=== PATIENT | female | born 1950 | race Caucasian/White ===

== ENCOUNTER 2020-02-24 12:33 | Inpatient (IN) | payer MEDICARE, BC, SELFPAY ==
[2020-02-24] VITALS (41 sets, daily range): BP systolic 93–127; BP diastolic 41–62; PULSE 99–112; RESP 13–27; TEMP 38; O2SAT 86–96; BMI 24.7
--- NOTE | 2020-02-24 13:34 | W.ED.GENADLT ---
HPI - General Adult General: Chief complaint: General Medical Stated complaint: Generalized illness/poss aspiration Time Seen by Provider: 02/24/20 12:58 History of Present Illness: HPI narrative: 69-year-old female presents with nausea and vomiting woke up at around 1 AM this morning the complaint of reflux she is concerned that she aspirated she evidently has had aspiration pneumonia related to this in the past. She had a low-grade fever at home and chills. She denies any hematemesis or coffee-ground emesis no hematochezia she denies chest pain she has been somewhat shortness of breath short of breath has a moderate cough which is nonproductive. She denies any UTI symptoms she does have chronic diarrhea lately related to Crohn's. She denies any chest pain. Onset (ago): hour(s) (12) Radiation: non-radiation Severity: moderate Relieving factors: rest and other (Oxygen) Exacerbating factors: movement Associated symptoms: Reports cough, decreased appetite, dyspnea, fevers/chills, malaise, nausea and short of breath; Deny chest pain, confusion, diaphoresis, headache(s), rash, palpitations, seizures, syncope, vomiting, weakness or other Treatments prior to arrival: none Review of Systems Const: Reports: malaise; Denies: diaphoresis ENMT: Denies: throat pain, ear pain, nasal discharge or nasal congestion Card: Denies: chest pain, palpitations or syncope Resp: Reports: shortness of breath GI: Reports: nausea; Denies: vomiting : Denies: flank pain, difficulty urinating, painful urination, urinary frequency or urinary urgency Skin/Breast: Denies: rash Neuro: Denies: headache or confusion PFS ED PFSH: Medical History (Updated 02/25/20 @ 13:30 by Dheeraj Thacker DO) Crohn disease On azathioprine GERD (gastroesophageal reflux disease) HTN (hypertension) Syncope Has been a recurrent problem, though now associated with dizziness but no further actual loss of consciousness, follows with Dr. Manning. Etiology not clear. Surgical History History of appendectomy History of bowel resection large and small bowel, 6 different ORs, no colostomy, some dumping syndrome History of cholecystectomy History of hysterectomy Family History Other Atrial fibrillation Stroke Social History (Updated 02/24/20 @ 19:46 by Dianne Houser MD) Smoking and tobacco status: current every day smoker e-cigarettes E-Cigarette Details: vaporizer device E-cig/vape details: no nicotine currently Quit status (tobacco): has quit using tobacco Year quit tobacco: 2014 Previous occupational history: Retired nurse Physical Exam Const: COMMON NORMALS: no apparent distress GENERAL APPEARANCE: cooperative and comfortable ORIENTATION/CONSCIOUSNESS: Yes awake, Yes oriented to person, Yes oriented to place and Yes oriented to time HENMT: COMMON NORMALS: normocephalic, head/scalp atraumatic, hearing grossly normal bilaterally, external ears normal, EAC's normal, TM's normal bilaterally, nasal mucous membranes and turbinates normal, moist oral mucous membranes and oropharynx normal HEAD & SCALP: normocephalic and atraumatic NOSE: nasal mucous membranes and turbinates normal EXTERNAL EAR: Yes external ears normal EXTERNAL AUDITORY CANAL: EAC's normal TYMPANIC MEMBRANE: TM's normal bilaterally Eye: COMMON NORMALS: PERRL, EOMs intact bilaterally, conjunctivae normal and no scleral icterus CONJUNCTIVA: Yes conjunctivae normal PUPIL: Yes PERRL Neck/C-Spine: COMMON NORMALS: no JVD Resp: COMMON NORMALS: normal respiratory effort AUSCULTATION: rhonchi and wheezes Cardio: COMMON NORMALS: no JVD, regular rate, regular rhythm and no murmurs RATE: regular rate RHYTHM: regular rhythm GI: COMMON NORMALS: soft to palpation and no hepatosplenomegaly AUSCULTATION: Yes normoactive bowel sounds PALPATION: Yes soft, No tender, No guarding and Yes no hepatosplenomegaly Extremity: COMMON NORMALS: normal to inspection, normal capillary refill, no clubbing, cyanosis or edema, no calf tenderness and no pedal edema Neuro: SENSORIUM/ORIENTATION: Yes oriented to person, Yes oriented to place and Yes oriented to time Skin: COMMON NORMALS: no rashes or lesions noted GENERAL SKIN EXAM: no rashes or lesions noted Course Vital Signs: Vital signs: Vital Signs Temperature 99.1 F 02/25/20 04:00 Pulse Rate 87 02/25/20 12:00 Respiratory Rate 16 02/25/20 10:00 Blood Pressure 100/56 02/25/20 12:00 Pulse Oximetry 93 02/25/20 12:00 [facility] - General Adult Lab Data: Labs: Lab Results 02/24/20 02/24/20 02/24/20 Range/Units 13:47 13:47 13:47 WBC 15.1 H (4.0-10.0) 10^3/ uL RBC 3.84 L (4.1-5.3) 10^6/u L Hgb 12.4 (11.5-15.3) g/dL Hct 38.1 (37.0-47.0) % MCV 99.2 H (81-99) fL MCH 32.3 (28.0-34.0) pg MCHC 32.5 (30.0-36.0) g/dL RDW 14.5 (12.1-15.1) % Plt Count 227 (130-400) 10^3/c mm MPV 10.6 H (7.4-10.4) fL Neut % (Auto) 85.3 % Lymph % (Auto) 6.4 % [place] % (Auto) 7.8 % Eos % (Auto) 0.0 % Baso % (Auto) 0.2 % Neut # (Auto) 12.8 H (1.8-7.7) 10^3/u L Lymph # (Auto) 1.0 (0.8-4.8) 10^3/u L [place] # (Auto) 1.2 H (0.2-0.9) 10^3/u L Eos # (Auto) 0.0 (0.0-0.8) 10^3/u L Baso # (Auto) 0.0 (0.0-0.1) 10^3/u L Nucleated RBC % (a uto) 0 % Nucleated RBCs # 0.0 /100WBC Sodium 138 (136-145) mmol/L Potassium 3.7 (3.5-5.1) mmol/L Chloride 102 (98-107) mmol/L Carbon Dioxide 24 (22-29) mmol/L Anion Gap 15.7 (5-19) BUN 18 (8-23) mg/dL Creatinine 1.3 H (0.5-0.9) mg/dL GFR Calculation 40.7 L (90-130) mL/min Glucose 105 (65-115) mg/dL Calculated Osmolal ity 283 L (285-295) mOsm/k g Lactate 1.9 (0.5-2.2) mmol/L Calcium 9.5 (8.5-10.5) mg/dL Total Bilirubin 0.8 (0.15-1.2) mg/dL AST 29 (0-32) U/L ALT 21 (0-33) U/L Alkaline Phosphata se 93 (35-105) IU/L Total Protein 6.3 L (6.6-8.7) g/dL Albumin 3.6 (3.5-5.2) g/dL Globulin 2.7 (1.3-4.6) g/dL Lipase 30 (13-60) U/L Urine Color (Yellow) Urine Appearance (CLEAR) Urine pH (5-7) Ur Specific Gravit y (1.005-1.030) Urine Protein (Negative) Urine Glucose (UA) (Normal) Urine Ketones (Negative) Urine Blood (Negative) Urine Nitrate (Negative) Urine Bilirubin (NEGATIVE) Urine Urobilinogen (Negative) mg/dL Ur Leukocyte [place] (Negative) 02/24/20 Range/Units 14:21 WBC (4.0-10.0) 10^3/ uL RBC (4.1-5.3) 10^6/u L Hgb (11.5-15.3) g/dL Hct (37.0-47.0) % MCV (81-99) fL MCH (28.0-34.0) pg MCHC (30.0-36.0) g/dL RDW (12.1-15.1) % Plt Count (130-400) 10^3/c mm MPV (7.4-10.4) fL Neut % (Auto) % Lymph % (Auto) % [place] % (Auto) % Eos % (Auto) % Baso % (Auto) % Neut # (Auto) (1.8-7.7) 10^3/u L Lymph # (Auto) (0.8-4.8) 10^3/u L [place] # (Auto) (0.2-0.9) 10^3/u L Eos # (Auto) (0.0-0.8) 10^3/u L Baso # (Auto) (0.0-0.1) 10^3/u L Nucleated RBC % (a uto) % Nucleated RBCs # /100WBC Sodium (136-145) mmol/L Potassium (3.5-5.1) mmol/L Chloride (98-107) mmol/L Carbon Dioxide (22-29) mmol/L Anion Gap (5-19) BUN (8-23) mg/dL Creatinine (0.5-0.9) mg/dL GFR Calculation (90-130) mL/min Glucose (65-115) mg/dL Calculated Osmolal ity (285-295) mOsm/k g Lactate (0.5-2.2) mmol/L Calcium (8.5-10.5) mg/dL Total Bilirubin (0.15-1.2) mg/dL AST (0-32) U/L ALT (0-33) U/L Alkaline Phosphata se (35-105) IU/L Total Protein (6.6-8.7) g/dL Albumin (3.5-5.2) g/dL Globulin (1.3-4.6) g/dL Lipase (13-60) U/L Urine Color Yellow (Yellow) Urine Appearance Clear (CLEAR) Urine pH 5 (5-7) Ur Specific Gravit y 1.010 (1.005-1.030) Urine Protein Neg (Negative) Urine Glucose (UA) Norm (Normal) Urine Ketones Negative (Negative) Urine Blood Neg (Negative) Urine Nitrate Negative (Negative) Urine Bilirubin Neg (NEGATIVE) Urine Urobilinogen Norm (Negative) mg/dL Ur Leukocyte [place] Negative (Negative) Discharge Plan Discharge Patient Disposition: Admitted As Inpatient Admit Provider: Dianne Houser Clinical Impression: Pneumonia, HTN (hypertension), GERD (gastroesophageal reflux disease) Condition: Stable Interventions: ED Discharge Assessment Last Done: 02/24/20 20:50 ED Charges Last Done: 02/24/20 20:50 Discharge Date/Time: 02/24/20 20:53 Coding Level 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
--- NOTE | 2020-02-24 13:37 | XR_ITS ---
WS: [id number] PORTABLE CHEST HISTORY: dyspnea/cough COMPARISON: 04/27/2019 Hyperinflated lungs. Development of pneumonia in the mid to lower RIGHT lung since the prior study. I nterstitial thickening and mild haziness is evident. LEFT lung is clear. No pleural effusion or pneum othorax. Cardiac size: Mildly enlarged cardiac silhouette. Mediastinum/Aorta: Mild atherosclerosis aorta. No osseous abnormality seen. XR/XR chest 1V portable [id number] IMPRESSION: 1. New interstitial pneumonia/pneumonitis mid and lower RIGHT lung. 2. Chronic emphysema and atherosclerosis aorta.
--- NOTE | 2020-02-24 13:37 | CT_ITS ---
WS: [id number] CT ABDOMEN AND PELVIS WITH CONTRAST HISTORY: Abdominal pain with history of Crohn's disease. Prior hysterectomy, cholecystectomy, appende ctomy and small bowel/colon surgery. TECHNIQUE: Imaging performed of the abdomen and pelvis with IV contrast. Single phase imaging of the abdomen. Coronal and sagittal reformats are submitted. All CT scans at [facility] use at least one of these dose optimization techniques: automated exposure control; mA and/or kV adjustment per patient size (includes targeted exams where dose is matched to clinical indication); or iterativ e reconstruction. IV CONTRAST: Visipaque 320; 95 mL IV. Oral contrast: No DLP: 927.2 mGy.cm COMPARISON: None available. Lower thorax: Hazy opacifications and tree-in-bud airspace disease in the RIGHT middle and RIGHT lowe r lobes consistent with pneumonia. There are groundglass areas of attenuation and more consolidated a reas. Heart is normal size. No hiatal hernia. Liver/biliary system: Normal size liver. No mass. There is mild biliary dilatation probably on the ba sis of a prior cholecystectomy. Gallbladder: Prior cholecystectomy. Pancreas: Normal. Spleen: Normal size spleen with granulomata. Adrenal glands: Normal. Right kidney: No obstruction. Normal enhancement. Exophytic cyst from the lower pole measures 8 mm. Left kidney: Normal kidney. Exophytic too small to characterize cystic mass from the upper pole. Aorta: Extensive atherosclerosis aorta with no aneurysm. Lymphadenopathy: None. Free fluid: None. GI tract: Surgical sutures are noted within the RIGHT colon. The appendix is been removed. There is i ncrease fluid throughout the colon and also portions of the small bowel. No Abdominal wall: Unremarkable abdominal wall. No hernia. Pelvis: Prior hysterectomy. Urinary bladder is not distended. Bones: LEFT convex curvature lumbar spine. CT/CT abdomen pelvis w con* [id number] IMPRESSION: 1. Increased amount of fluid within the mid to distal small bowel and colon. N o transition point or site of obstruction is apparent. Postsurgical changes in the cecum, transverse colon. Prior cholecystectomy, appendectomy and hysterecto my. 2. RIGHT middle and RIGHT lower lobe pneumonia. 3. Extensive atherosclerosis aorta.
[2020-02-24 13:57] LABS: Basophils % 0.2 %; Hematocrit 38.1 % (37.0-47.0); Hemoglobin 12.4 g/dL (11.5-15.3); Lymphocytes % 6.4 %; Mean Corpuscular HGB Conc 32.5 g/dL (30.0-36.0); Mean Corpuscular Hemoglobin 32.3 pg (28.0-34.0); Mean Corpuscular Volume 99.2 fL (81-99); Mean Platelet Volume 10.6 fL (7.4-10.4); Monocytes # 1.2 10^3/uL (0.2-0.9); Monocytes % 7.8 %; Neutrophils # 12.8 10^3/uL (1.8-7.7); Neutrophils % 85.3 %; Nucleated Red Blood Cells % 0 %; Platelet Count 227 10^3/cmm (130-400); Red Blood Count 3.84 10^6/uL (4.1-5.3); Red Cell Distribution Width 14.5 % (12.1-15.1); White Blood Count 15.1 10^3/uL (4.0-10.0)
[2020-02-24 14:10] LABS: Lactate (Lactic Acid level) 1.9 mmol/L (0.5-2.2)
[2020-02-24 14:11] LABS: Alanine Aminotransferase 21 U/L (0-33); Albumin Level 3.6 g/dL (3.5-5.2); Alkaline Phosphatase 93 IU/L (35-105); Anion Gap 15.7 (5-19); Aspartate Amino Transferase 29 U/L (0-32); Blood Urea Nitrogen 18 mg/dL (8-23); Calcium 9.5 mg/dL (8.5-10.5); Carbon Dioxide 24 mmol/L (22-29); Chloride 102 mmol/L (98-107); Globulin 2.7 g/dL (1.3-4.6); Glomerular Filtration Rate 40.7 mL/min (90-130); Glucose 105 mg/dL (65-115); Lipase 30 U/L (13-60); Osmolality Calculated 283 mOsm/kg (285-295); Potassium 3.7 mmol/L (3.5-5.1); Sodium 138 mmol/L (136-145); Total Bilirubin 0.8 mg/dL (0.15-1.2); Total Protein 6.3 g/dL (6.6-8.7)
[2020-02-24 14:31] LABS: Add Urine Microscopic? NO
[2020-02-24] MEDS: iodixanol 320 mg/mL 100mL Btl IV (14:31)
[2020-02-24] MEDS: ondansetron 2 mg/ML SDV 2 mL 4 MG IVP ×2 (14:40→17:30)
[2020-02-24] MEDS: sodium chloride 0.9% 1,000 ML 999 ML IV (14:40)
[2020-02-24 14:41] LABS: Bilirubin Urine Neg (NEGATIVE); Blood Urine Neg (Negative); Glucose Urine UA Norm (Normal); Ketones Urine Negative (Negative); Leukocyte Esterase Urine Negative (Negative); Nitrate Urine Negative (Negative); Protein Urine Neg (Negative); Urine Appearance Clear (CLEAR); Urine Color Yellow (Yellow); Urobilinogen Urine Norm (Negative); pH Urine 5 (5-7)
[2020-02-24] MEDS: clindamycin 150 mg/mL SDV 6 mL 600 MG IV (17:00)
[2020-02-24] MEDS: doxycycline 100 MG in sodium chloride 0.9% (plus) 100 ML IV (18:00)
--- NOTE | 2020-02-24 18:14 | PM.HP ---
Providers/Chief Complaint Admitting Physician: Dianne Houser Primary Care Provider: Israel Garcia APN Chief Complaint: Generalized illness/poss aspiration History of Present Illness Milagros Champagne is a 69 year old female who presented to the emergency room with shortness of breath and not feeling well. Symptoms began around 1 AM this morning. She had some significant reflux which is a chronic problem for her and this was followed by several episodes of vomiting. A short time later she began to feel short of breath. It has progressively worsened since then. She reports a fever up to 101 at home. EMS reported oxygen saturations in the mid 80s. She is not normally on oxygen. She says she was fine yesterday, went to [facility] and was doing okay. No known sick contacts. Resides in [facility] in [facility]. She did have influenza and pneumonia in August of last year but has done okay since then. Continues to have intermittent episodes of dizziness. In the emergency room today she was found to have right middle lobe and right lower lobe pneumonia. She continued to be febrile. Lactic acid was normal but white count was 15. She received some clindamycin. She is being admitted for further care. Review of Systems Const: Reports: fever and chills; Denies: change in weight Eyes: Denies: change in vision ENMT: Reports: dry mouth and other; Denies: throat pain or nasal congestion Card: Denies: chest pain, palpitations or edema Resp: Reports: shortness of breath, productive cough, non-productive cough, wheezing and chest congestion; Denies: coughing up blood GI: Reports: nausea, vomiting, heartburn/indigestion, diarrhea (Chronic, not recently changed) and other (Frequent reflux); Denies: abdominal pain, vomiting blood, difficulty swallowing, constipation or blood in stool : Denies: difficulty urinating or urinary frequency Musc: Denies: joint pain or joint swelling Skin/Breast: Denies: rash or sores Neuro: Denies: headache or weakness in extremities Psych: Denies: anxiety or depression Jet/Lymph: Denies: easy bruising or easy bleeding Medications/Allergies Home Medications Medication Instructions Recorded Confirmed Last Taken Type atenolol 50 mg tablet 50 mg PO BID 12/27/19 02/24/20 02/23/20 History azathioprine 50 mg tablet 50 mg PO DAILY 12/27/19 02/24/20 02/23/20 History lisinopril 20 mg tablet 20 mg PO DAILY 12/27/19 02/24/20 02/23/20 History pantoprazole 40 mg tablet,delayed 40 mg PO DAILY 12/27/19 02/24/20 02/23/20 History release promethazine 25 mg tablet 25 mg PO Q6H PRN 12/27/19 02/24/20 Unknown History cyanocobalamin (vitamin B-12) 1,000 mcg PO DAILY 02/24/20 02/24/20 02/23/20 History [Vitamin B-12] meclizine 25 mg PO TID PRN 02/24/20 02/24/20 Unknown History Allergies Allergy/AdvReac Type Severity Reaction Status Date / Time codeine Allergy Unknown Verified 12/27/19 09:04 erythromycin base Allergy Unknown Verified 12/27/19 09:04 Penicillins Allergy Unknown Verified 12/27/19 09:04 PFSH Acute PFSH: Medical History (Updated 02/24/20 @ 19:53 by Dianne Houser MD) Crohn disease On azathioprine GERD (gastroesophageal reflux disease) HTN (hypertension) Syncope Has been a recurrent problem, though now associated with dizziness but no further actual loss of consciousness, follows with Dr. Manning. Etiology not clear. Surgical History History of appendectomy History of bowel resection large and small bowel, 6 different ORs, no colostomy, some dumping syndrome History of cholecystectomy History of hysterectomy Family History Other Atrial fibrillation Stroke Social History (Updated 02/24/20 @ 19:46 by Dianne Houser MD) Smoking and tobacco status: current every day smoker e-cigarettes E-Cigarette Details: vaporizer device E-cig/vape details: no nicotine currently Quit status (tobacco): has quit using tobacco Year quit tobacco: 2014 Previous occupational history: Retired nurse Vitals/I&O/Wt Last Vital Signs Temp 100.4 F H 02/24/20 12:34 Pulse 108 H 02/24/20 12:43 Resp 18 02/24/20 12:43 BP 105/57 02/24/20 12:43 Pulse Ox 92 02/24/20 12:43 Weight last 48 hrs Weight 71.668 kg Physical Exam Const: OTHER: Alert, oriented x3, cooperative, mildly ill-appearing HENMT: OTHER: Normocephalic atraumatic. Oropharynx dry, edentulous uppers Eye: OTHER: Pupils equally round and reactive to light Neck/C-Spine: COMMON NORMALS: supple Resp: OTHER: Patient with some wheezing and rhonchi noted to the right, wheezing to the left, no accessory muscle use but has to pause when talking every now and then Cardio: OTHER: Tachycardic, regular rhythm, 1+ pulses GI: OTHER: Abdomen soft, nontender, positive bowel sounds Extremity: NARRATIVE EXTREMITY EXAM: No pitting edema or acute synovitis Neuro: OTHER: Speech clear, moves all extremities, face symmetric Skin: NARRATIVE SKIN EXAM: Dry skin, no acute rashes noted, chronic sun exposure changes Data : 02/24/20 13:47 02/24/20 13:47 Other Labs: Short CBC 02/24/20 Range/Units 13:47 WBC 15.1 H (4.0-10.0) 10^3/uL Hgb 12.4 (11.5-15.3) g/dL Hct 38.1 (37.0-47.0) % Plt Count 227 (130-400) 10^3/cmm BMP 02/24/20 13:47 Sodium 138 Potassium 3.7 Chloride 102 Carbon Dioxide 24 BUN 18 Creatinine 1.3 H Glucose 105 Calcium 9.5 Liver Function 02/24/20 Range/Units 13:47 Total Bilirubin 0.8 (0.15-1.2) mg/dL AST 29 (0-32) U/L ALT 21 (0-33) U/L Alkaline Phosphatase 93 (35-105) IU/L Albumin 3.6 (3.5-5.2) g/dL Urine 02/24/20 Range/Units 14:21 Urine Color Yellow (Yellow) Urine Appearance Clear (CLEAR) Urine pH 5 (5-7) Ur Specific [place] 1.010 (1.005-1.030) Urine Protein Neg (Negative) Urine Glucose (UA) Norm (Normal) Laboratory Tests 02/24/20 02/24/20 02/24/20 13:47 13:47 13:47 Neut % (Auto) 85.3 Lymph % (Auto) 6.4 Lactate 1.9 Lipase 30 Influenza Type A Ag Influenza Type B Ag 02/24/20 17:20 Neut % (Auto) Lymph % (Auto) Lactate Lipase Influenza Type A Ag Negative Influenza Type B Ag Negative Micro: Microbiology 02/24/20 15:54 Blood Culture - Preliminary Blood SPECIMEN COLLECTED 02/24/20 13:47 Blood Culture - Preliminary Blood SPECIMEN COLLECTED A&P Assessment and plan (1) Pneumonia: Status: Acute Qualifiers: Pneumonia type: aspiration pneumonia Laterality: right Lung location: lower lobe of lung Aspiration pneumonia type: due to gastric secretions Qualified Code(s): J69.0 - Pneumonitis due to inhalation of food and vomit (2) GERD (gastroesophageal reflux disease): Status: Acute Qualifiers: Esophagitis presence: esophagitis presence not specified Qualified Code(s): K21.9 - Gastro-esophageal reflux disease without esophagitis (3) Crohn disease: Status: Acute Qualifiers: Gastrointestinal tract location: small and large intestine Digestive disease complication type: without complication Qualified Code(s): K50.80 - Crohn's disease of both small and large intestine without complications (4) HTN (hypertension): Status: Acute Qualifiers: Hypertension type: essential hypertension Qualified Code(s): I10 - Essential (primary) hypertension Additional A&P Information Inpatient admission COVID-19 testing Broad coverage with Levaquin and Clinda Albuterol inhaler Oxygen therapy as needed, will need to continue to monitor Continue PPI Add lactobacillus Will continue atenolol at half dose but otherwise hold most of the remainder of patient's medications Lovenox for DVT prophylaxis Supportive care otherwise Full code Anticipate disposition back home with the question being whether or not she will need to continue on oxygen therapy Further plans depending on initial testing and response to Attestations Medical Necessity Statement*: Currently anticipated stay greater than 2 midnights in a patient requiring oxygen therapy for pneumonia Coding Level of Care Code Acute Director Of Education for [facility] Fwd Diagnoses Pneumonia J69.0 Pneumonia type: aspiration pneumonia Laterality: right Lung location: lower lobe of lung Aspiration pneumonia type: due to gastric secretions GERD (gastroesophageal reflux disease) K21.9 Esophagitis presence: esophagitis presence not specified Crohn disease K50.80 Gastrointestinal tract location: small and large intestine Digestive disease complication type: without complication HTN (hypertension) I10 Hypertension type: essential hypertension
[2020-02-24] MEDS: morphine 4 mg/mL SDV 1 mL 2 MG IVP (18:35)
[2020-02-24 19:09] LABS: Influenza A by IFA Negative (Negative)
[2020-02-24 19:10] LABS: Influenza B by IFA Negative (Negative)
--- NOTE | 2020-02-24 20:03 | PC.NURSE ---
REPORT RECEIVED FROM FELECIA, HOPPER ATTENDANT, AND CARE TRANSFERRED TO GABRIELE MARTINEZ
[2020-02-24] MEDS: enoxaparin 40 mg/0.4 mL Syringe SUBCUT (22:19)
[2020-02-24] MEDS: sodium chlor 0.45% +KCl 20 mEq 20 MEQ/1,000 ML BAG 100 MEQ IV (22:20)
[2020-02-24] MEDS: levofloxacin-dextrose 5 % 750 MG/150 ML PREMIX 100 MG IV (22:20)
[2020-02-25] VITALS (22 sets, daily range): BP systolic 91–154; BP diastolic 42–113; PULSE 82–114; RESP 14–29; TEMP 37.2–37.3; O2SAT 92–99
[2020-02-25] MEDS: clindamycin 600 MG/50 ML PREMIX 100 MG IV ×3 (01:30→19:20)
[2020-02-25] MEDS: acetaminophen 325 mg Tablet 650 MG PO ×2 (01:37→17:08)
[2020-02-25 06:25] LABS: Magnesium 1.5 mg/dL (1.7-2.3); Phosphorus 3.5 mg/dL (2.5-4.5)
[2020-02-25 06:55] LABS: Anion Gap 16.7 (5-19); Blood Urea Nitrogen 20 mg/dL (8-23); Calcium 8.1 mg/dL (8.5-10.5); Carbon Dioxide 22 mmol/L (22-29); Chloride 102 mmol/L (98-107); Glomerular Filtration Rate 44.7 mL/min (90-130); Glucose 93 mg/dL (65-115); Osmolality Calculated 280 mOsm/kg (285-295); Potassium 3.7 mmol/L (3.5-5.1); Sodium 137 mmol/L (136-145)
[2020-02-25 06:58] LABS: Basophils % 0.3 %; Eosinophils % 0.1 %; Hematocrit 34.9 % (37.0-47.0); Lymphocytes # 1.2 10^3/uL (0.8-4.8); Lymphocytes % 8.4 %; Mean Corpuscular HGB Conc 31.5 g/dL (30.0-36.0); Mean Corpuscular Hemoglobin 32.5 pg (28.0-34.0); Mean Corpuscular Volume 103.3 fL (81-99); Mean Platelet Volume 10.7 fL (7.4-10.4); Monocytes # 0.9 10^3/uL (0.2-0.9); Monocytes % 6.6 %; Neutrophils # 11.9 10^3/uL (1.8-7.7); Neutrophils % 83.9 %; Nucleated Red Blood Cells % 0 %; Platelet Count 177 10^3/cmm (130-400); Red Blood Count 3.38 10^6/uL (4.1-5.3); Red Cell Distribution Width 14.7 % (12.1-15.1); White Blood Count 14.2 10^3/uL (4.0-10.0)
[2020-02-25] MEDS: lactobacillus 1 Tablet 1 TAB PO ×2 (08:54→19:19)
[2020-02-25] MEDS: pantoprazole DR 40 mg Tablet PO (08:54)
[2020-02-25] MEDS: atenolol 50 mg Tablet 25 MG PO ×2 (08:54→19:20)
--- NOTE | 2020-02-25 08:55 | P.PN_ITS ---
Subjective Medications: Reviewed: Yes Vitals/I&O/Wt Last Vital Signs Temp 99.1 F 02/25/20 04:00 Pulse 97 02/25/20 04:00 Resp 18 02/25/20 04:00 BP 91/42 02/25/20 04:00 Pulse Ox 93 02/25/20 03:00 02/24/20 02/25/20 02/25/20 22:59 06:59 14:59 Intake Total 100 / 100 50 / 150 Balance 100 / 100 50 / 150 Weight last 48 hrs Weight 71.668 kg Physical Exam Const: OTHER: Alert, oriented x3, cooperative, mildly ill-appearing HENMT: OTHER: Normocephalic atraumatic. Oropharynx dry, edentulous uppers Eye: OTHER: Pupils equally round and reactive to light Neck/C-Spine: COMMON NORMALS: supple Resp: OTHER: Patient with some wheezing and rhonchi noted to the right, wheezing to the left, no accessory muscle use but has to pause when talking debbie ry now and then Cardio: OTHER: Tachycardic, regular rhythm, 1+ pulses GI: OTHER: Abdomen soft, nontender, positive bowel sounds Extremity: NARRATIVE EXTREMITY EXAM: No pitting edema or acute synovitis Neuro: OTHER: Speech clear, moves all extremities, face symmetric Skin: NARRATIVE SKIN EXAM: Dry skin, no acute rashes noted, chronic sun exposure changes Data : 02/25/20 06:50 02/25/20 05:29 Micro: Microbiology 02/24/20 15:54 Blood Culture - Preliminary Blood SPECIMEN COLLECTED 02/24/20 13:47 Blood Culture - Preliminary Blood SPECIMEN COLLECTED A&P Assessment and plan (1) Pneumonia: Status: Acute Qualifiers: Pneumonia type: aspiration pneumonia Aspiration pneumonia type: due to gastric secretions Laterality: right Lung location: lower lobe of lung Qualified Code(s): J69.0 - Pneumonitis due to inhalation of food and vomit (2) GERD (gastroesophageal reflux disease): Status: Acute Qualifiers: Esophagitis presence: esophagitis presence not specified Qualified Code(s): K21.9 - Gastro-esophageal reflux disease without esophagitis (3) Crohn disease: Status: Acute Qualifiers: Gastrointestinal tract location: small and large intestine Digestive disease complication type: without complication Qualified Code(s): K50.80 - Crohn's disease of both small and large intestine without complications (4) HTN (hypertension): Status: Acute Qualifiers: Hypertension type: essential hypertension Qualified Code(s): I10 - Essential (primary) hypertension Additional A&P Information COVID-19 testing still pending Continue broad antibiotics Albuterol inhaler On oxygen Replace magnesium Continue PPI On lactobacillus Keep atenolol at half dose for now Remains off of lisinopril Azathioprine currently held Lovenox for DVT prophylaxis Supportive care otherwise Full code Anticipate disposition back home with the question being whether or not she will need to continue on oxygen therapy Further plans depending on initial testing and response to Coding 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
--- NOTE | 2020-02-25 14:53 | PM.PN ---
Subjective Subjective: Interval history: Patient is feeling much better. She was able to come off of oxygen last evening. She is not been up walking around much because she has been in isolation. COVID testing has come back negative. Yesterday her oxygen saturations were in the mid 80s at her initial presentation. Official chest x-ray interpretation does not show evidence of pneumonia. White count is trending down. Vitals/I&O/Wt Last Vital Signs Temp 99.1 F 02/25/20 04:00 Pulse 87 02/25/20 12:00 Resp 16 02/25/20 10:00 BP 100/56 02/25/20 12:00 Pulse Ox 93 02/25/20 12:00 02/24/20 02/25/20 02/25/20 22:59 06:59 14:59 Intake Total 100 / 100 50 / 150 Balance 100 / 100 50 / 150 Weight last 48 hrs Weight 71.668 kg Physical Exam Const: OTHER: Alert, oriented x3, cooperative, not as ill-appearing today HENMT: OTHER: Normocephalic atraumatic, moist mucus membranes Eye: OTHER: Pupils equally round and reactive to light Neck/C-Spine: OTHER: Supple Resp: OTHER: Patient is actually clear today. No wheezes noted. No retractions Cardio: OTHER: Regular rate and rhythm, no murmurs gallops or rubs. Pulses euqal throughout GI: OTHER: Abdomen soft, nontender, nondistended with positive bowel sounds Extremity: NARRATIVE EXTREMITY EXAM: No cyanosis, clubbing or edema Neuro: OTHER: Face symmetric, speech clear, moves all extremities Psych: OTHER: Normal affect Skin: OTHER: Skin without any lesions or rashes noted Data : 02/25/20 06:50 02/25/20 05:29 Micro: Microbiology 02/24/20 15:54 Blood Culture - Preliminary Blood SPECIMEN COLLECTED 02/24/20 13:47 Blood Culture - Preliminary Blood SPECIMEN COLLECTED A&P Assessment and plan (1) Hypoxemia: Noted at presentation into the mid 80s. Not chronically on oxygen. Looks to have improved and is no longer on oxygen at rest. Was felt to be related to pneumonia although official chest x-ray interpretation just shows emphysematous changes. May be more of a new finding of COPD situation with some bronchospasm yesterday, possibly related to reflux. Status: Acute (2) Pneumonia: Suspected to be aspiration pneumonia at the time of admission based on history. Status: Acute Qualifiers: Pneumonia type: aspiration pneumonia Aspiration pneumonia type: due to gastric secretions Laterality: right Lung location: lower lobe of lung Qualified Code(s): J69.0 - Pneumonitis due to inhalation of food and vomit (3) GERD (gastroesophageal reflux disease): Chronic problem associated at times with significant regurgitation. This happened the evening prior to admission Status: Chronic Qualifiers: Esophagitis presence: esophagitis presence not specified Qualified Code(s): K21.9 - Gastro-esophageal reflux disease without esophagitis (4) Crohn disease: Status: Chronic Qualifiers: Gastrointestinal tract location: small and large intestine Digestive disease complication type: without complication Qualified Code(s): K50.80 - Crohn's disease of both small and large intestine without complications (5) HTN (hypertension): Status: Chronic Qualifiers: Hypertension type: essential hypertension Qualified Code(s): I10 - Essential (primary) hypertension Additional A&P Information COVID testing was negative Discontinue isolation Continue antibiotics as well as inhaler as needed, though will change to oral antibiotics Monitor need to resume oxygen Check one time troponin and EKG Patient encouraged to ambulate so we can get an idea of what her oxygen level and symptoms are doing with exertion Continue PPI Continue lactobacillus Looks like we can probably increase her atenolol to usual dose Resume lisinopril home dosing Resume azathioprine Replace magnesium Supportive care otherwise We will reevaluate in the morning and if continues to remain off of oxygen discharge home with outpatient follow-up to PCP. Will likely complete a course of antibiotics and ensure patient has breathing treatments and if necessary oxygen at home though final determination will be made tomorrow. Full code Plans discussed with patient and she was given an opportunity to ask questions Attestations Medical Necessity Statement*: Requires ongoing inpatient stay to monitor for recurrent significant hypoxemia and evaluate we bit further as noted above. At presentation oxygen saturations were 84% on room air and she is not normally on oxygen. She has come off of oxygen quite quickly. She has improved dramatically with initiation of treatment. Coding Level of Care Code Acute Environmental Services [facility] Diagnoses Hypoxemia R09.02 Pneumonia J69.0 Pneumonia type: aspiration pneumonia Aspiration pneumonia type: due to gastric secretions Laterality: right Lung location: lower lobe of lung GERD (gastroesophageal reflux disease) K21.9 Esophagitis presence: esophagitis presence not specified Crohn disease K50.80 Gastrointestinal tract location: small and large intestine Digestive disease complication type: without complication HTN (hypertension) I10 Hypertension type: essential hypertension
[2020-02-25] MEDS: enoxaparin 40 mg/0.4 mL Syringe SUBCUT (20:30)
[2020-02-25] MEDS: magnesium oxide 400 mg tablet PO (20:43)
[2020-02-26] VITALS: BP 135/78; PULSE 94; RESP 20; TEMP 37.3; O2SAT 92
[2020-02-26] MEDS: ibuprofen 600 mg Tablet PO (01:27)
[2020-02-26] MEDS: clindamycin 600 MG/50 ML PREMIX 100 MG IV (01:29)
--- NOTE | 2020-02-26 01:31 | PC.NURSE ---
One time order for EKG; RR was notified. Stated this was an order for the morning.
[2020-02-26 04:00] VITALS: BP 100/60; PULSE 72; RESP 20; TEMP 36.6; O2SAT 92
[2020-02-26 05:47] LABS: Basophils % 0.2 %; Eosinophils # 0.1 10^3/uL (0.0-0.8); Eosinophils % 0.5 %; Hematocrit 31.7 % (37.0-47.0); Hemoglobin 10.2 g/dL (11.5-15.3); Lymphocytes # 1.3 10^3/uL (0.8-4.8); Lymphocytes % 12.2 %; Mean Corpuscular HGB Conc 32.2 g/dL (30.0-36.0); Mean Corpuscular Hemoglobin 32.5 pg (28.0-34.0); Mean Platelet Volume 11.6 fL (7.4-10.4); Monocytes # 0.9 10^3/uL (0.2-0.9); Neutrophils # 8.1 10^3/uL (1.8-7.7); Neutrophils % 77.8 %; Nucleated Red Blood Cells % 0 %; Platelet Count 168 10^3/cmm (130-400); Red Blood Count 3.14 10^6/uL (4.1-5.3); Red Cell Distribution Width 14.5 % (12.1-15.1); White Blood Count 10.4 10^3/uL (4.0-10.0)
[2020-02-26] MEDS: levoFLOXacin 750 mg Tablet PO (05:49)
[2020-02-26 06:33] LABS: Anion Gap 11.8 (5-19); Blood Urea Nitrogen 16 mg/dL (8-23); Carbon Dioxide 24 mmol/L (22-29); Chloride 103 mmol/L (98-107); Glomerular Filtration Rate 44.7 mL/min (90-130); Glucose 100 mg/dL (65-115); Osmolality Calculated 276 mOsm/kg (285-295); Potassium 3.8 mmol/L (3.5-5.1); Sodium 135 mmol/L (136-145)
[2020-02-26 07:23] LABS: Troponin T (5th) Once 13 ng/mL (0-10)
--- NOTE | 2020-02-26 07:37 | PM.DCS ---
Discharge Providers Date of Admission: 02/24/20 15:19 Date of Discharge: February 26, 2020 Attending Provider at Admission: Dianne Houser MD Attending Provider at Discharge: Dianne Houser MD Primary Care Provider: Israel Garcia APN Diagnoses at Discharge Discharge Diagnosis (1) Hypoxemia: Status: Acute (2) Pneumonia: Status: Acute Qualifiers: Aspiration pneumonia type: due to gastric secretions Laterality: right Lung location: lower lobe of lung Pneumonia type: aspiration pneumonia Qualified Code(s): J69.0 - Pneumonitis due to inhalation of food and vomit (3) GERD (gastroesophageal reflux disease): Status: Chronic Problem details: Severe. Pain is from Protonix to Dexilant 02/26/2020. Qualifiers: Esophagitis presence: esophagitis presence not specified Qualified Code(s): K21.9 - Gastro-esophageal reflux disease without esophagitis (4) Crohn disease: Status: Chronic Problem details: On azathioprine Qualifiers: Digestive disease complication type: without complication Gastrointestinal tract location: small and large intestine Qualified Code(s): K50.80 - Crohn's disease of both small and large intestine without complications (5) HTN (hypertension): Status: Chronic Qualifiers: Hypertension type: essential hypertension Qualified Code(s): I10 - Essential (primary) hypertension Reason for Visit Reason for Visit: Reason For Visit: Generalized illness/poss aspiration Hospital Course Hospital Course: Patient is a 69-year-old female with a history of severe reflux disease and intermittent issues with regurgitation at night. She had an episode the evening prior to admission with several episodes of vomiting. She became progressively more short of breath and was actually in enough distress to call EMS. She was not able to use her inhaler. Initial saturations were in the mid 80s. On arrival to the emergency room she continued to have some distress but was improved with initiation of oxygen therapy. Chest x-ray did not reveal it but CT imaging of the abdomen and pelvis that was done showed the lower part to the lungs indicating right middle lobe and right lower lobe opacities. She was treated empirically for aspiration pneumonia. Abnormalities were not notable on chest x-ray. Patient rapidly improved was able to come off of oxygen. I suspect that she had some bronchospasm into the degree of distress that she had initially. Home oxygen evaluation prior to discharge showed resting saturations of 95% with ambulatory saturations of 93% after 6 minutes. I did discuss with the patient continuing antibiotic coverage. Here in the hospital she was treated with Clinda and Levaquin. At discharge I am giving her an additional 5 days of Levaquin therapy. She has been on multiple stomach medications and has not had relief from her reflux symptoms. Review of her insurance pharmacy indicated that Dexilant was considered formulary. We will try switching her to this and see if she gets any improved management. EKG done during the hospital stay showed incomplete right bundle branch block. I talked to the patient about her symptoms potentially being related to other causes besides the reflux but she feels fairly certain that this is the same thing she has been dealing with for some time. A baseline troponin without series was checked and was just outside the upper range of normal a couple of days after being admitted at 13. Should she have continued symptoms outpatient cardiac evaluation can be considered. Patient was felt stable for discharge home with outpatient follow-up to her primary care provider. I think this is probably more of an aspiration pneumonitis situation based on history with what seemed like acute bronchospasm contributing significant hypoxemia noted at presentation. There may be an element of some undiagnosed COPD contributing. Physical Exam Const: OTHER: Alert, oriented x3, cooperative, not as ill-appearing today Resp: OTHER: Clear to auscultation bilaterally. No wheezes noted. No retractions or other accessory muscle use Cardio: OTHER: Regular rate and rhythm, no murmurs gallops or rubs. Extremity: NARRATIVE EXTREMITY EXAM: No cyanosis, clubbing or edema Discharge Data Data Completed and Pending: Completed Studies During Hospitalization Category Date Time Status CT abdomen pelvis w con* [id number] Stat Cat Scan 02/24/20 13:37 Completed XR chest 1V paramjit ble [id number] Stat Exams 02/24/20 13:37 Completed Pending at discharge Category Date Time Status Blood Culture Sta t Lab 02/24/20 15:54 Results Sputum Culture an d Gram Stain Stat Lab 02/24/20 14:49 Uncollected Labs from last 24 hours 02/26/20 02/26/20 02/26/20 07:00 05: 05:20 WBC 10.4 H RBC 3.14 L Hgb 10.2 L Hct 31.7 L MCV 101.0 H MCH 32.5 MCHC 32.2 RDW 14.5 Plt Count 168 MPV 11.6 H Neut % (Auto) 77.8 Lymph % (Auto) 12.2 Dane % (Auto) 9.0 Eos % (Auto) 0.5 Baso % (Auto) 0.2 Neut # (Auto) 8.1 H Lymph # (Auto) 1.3 Dane # (Auto) 0.9 Eos # (Auto) 0.1 Baso # (Auto) 0.0 Nucleated RBC % (a uto) 0 Nucleated RBCs # 0.0 Sodium 135 L Potassium 3.8 Chloride 103 Carbon Dioxide 24 Anion Gap 11.8 BUN 16 Creatinine 1.2 H GFR Calculation 44.7 L Glucose 100 Calculated Osmolal ity 276 L Calcium 9.0 Troponin T Gen 5 n g/L 13 H Nasal/Oral COVID-1 9 PCR 02/24/20 17:20 WBC RBC Hgb Hct MCV MCH MCHC RDW Plt Count MPV Neut % (Auto) Lymph % (Auto) Dane % (Auto) Eos % (Auto) Baso % (Auto) Neut # (Auto) Lymph # (Auto) Dane # (Auto) Eos # (Auto) Baso # (Auto) Nucleated RBC % (a uto) Nucleated RBCs # Sodium Potassium Chloride Carbon Dioxide Anion Gap BUN Creatinine GFR Calculation Glucose Calculated Osmolal ity Calcium Troponin T Gen 5 n g/L Nasal/Oral COVID-1 9 PCR negative Imaging^: CT Abd/Pel: Radiologist's impression: Lower thorax: Hazy opacifications and tree-in-bud airspace disease in the RIGHT middle and RIGHT lower lobes consistent with pneumonia. There are groundglass areas of attenuation and more consolidated areas. Heart is normal size. No hiatal hernia. Liver/biliary system: Normal size liver. No mass. There is mild biliary dilatation probably on the basis of a prior cholecystectomy. Gallbladder: Prior cholecystectomy. Pancreas: Normal. Spleen: Normal size spleen with granulomata. Adrenal glands: Normal. Right kidney: No obstruction. Normal enhancement. Exophytic cyst from the lower pole measures 8 mm. Left kidney: Normal kidney. Exophytic too small to characterize cystic mass from the upper pole. Aorta: Extensive atherosclerosis aorta with no aneurysm. Lymphadenopathy: None. Free fluid: None. GI tract: Surgical sutures are noted within the RIGHT colon. The appendix is been removed. There is increase fluid throughout the colon and also portions of the small bowel. No Abdominal wall: Unremarkable abdominal wall. No hernia. Pelvis: Prior hysterectomy. Urinary bladder is not distended. Bones: LEFT convex curvature lumbar spine. CT/CT abdomen pelvis w con* [id number] IMPRESSION: 1. Increased amount of fluid within the mid to distal small bowel and colon. No transition point or site of obstruction is apparent. Postsurgical changes in the cecum, transverse colon. Prior cholecystectomy, appendectomy and hysterectomy. 2. RIGHT middle and RIGHT lower lobe pneumonia. 3. Extensive atherosclerosis aorta. CXR: Radiologist's impression: Hyperinflated lungs. Development of pneumonia in the mid to lower RIGHT lung since the prior study. Interstitial thickening and mild haziness is evident. LEFT lung is clear. No pleural effusion or pneumothorax. Cardiac size: Mildly enlarged cardiac silhouette. Mediastinum/Aorta: Mild atherosclerosis aorta. No osseous abnormality seen. XR/XR chest 1V portable [id number] IMPRESSION: 1. New interstitial pneumonia/pneumonitis mid and lower RIGHT lung. 2. Chronic emphysema and atherosclerosis aorta. Vitals: Last Vital Signs Temp 97.9 F 02/26/20 04:00 Pulse 72 02/26/20 04:00 Resp 20 H 02/26/20 04:00 BP 100/60 02/26/20 04:00 Pulse Ox 92 02/26/20 04:00 Discharge Plan Discharge Patient Disposition: Home, Self-Care Condition: Stable Prescriptions: New Ventolin HFA 90 mcg/actuation Hfa Aerosol Inhaler 2 puff inhalation Q6H PRN (Reason: Shortness Of Breath) Qty: 18 RF: 0 Floranex 1 million cell Tablet 1 tab PO BID Qty: 60 RF: 0 magnesium oxide 400 mg (241.3 mg magnesium) Tablet 400 mg PO BID Qty: 30 RF: 0 levofloxacin 750 mg Tablet 750 mg PO DAILY@0600 Qty: 5 RF: 0 Dexilant 30 mg capsule,biphase delayed releas 30 mg PO DAILY Qty: 30 RF: 3 Continued atenolol 50 mg tablet 50 mg PO DAILY RF: 0 azathioprine 50 mg tablet 50 mg PO DAILY RF: 0 lisinopril 20 mg tablet 20 mg PO DAILY RF: 0 promethazine 25 mg tablet 25 mg PO Q6H PRN (Reason: Nausea) RF: 0 Vitamin B-12 1,000 mcg Tablet 1,000 mcg PO DAILY RF: 0 meclizine 25 mg Tablet 25 mg PO TID PRN (Reason: Dizziness) RF: 0 Discontinued pantoprazole 40 mg tablet,delayed release (DR/EC) 40 mg PO DAILY RF: 0 Discharge Orders: Discharge Order (Routine); Ordered 02/26/20 Ordered By: Dianne Houser Referrals: Israel Garcia, INSTRUMENT MECHANICS SUPERVISOR [Primary Care Provider] - 7-10 days Discharge Diet: Usual diet Discharge Activity: Resume usual activity Patient Instructions: Albuterol (By breathing), Levofloxacin (By mouth), Magnesium Oxide (By mouth), Gastroesophageal Reflux Disease (DC), Pneumonia (DC), Pneumonia Stoplight Discharge Attestations Time Spent in Discharge Care*: greater than 30 min Quality Metrics Clinical Quality Measures During this hospital stay, did patient experience: None Coding Level of Care Code Acute Lathe Spotter for [facility] Fwd Diagnoses Hypoxemia R09.02 Pneumonia J69.0 Aspiration pneumonia type: due to gastric secretions Laterality: right Lung location: lower lobe of lung Pneumonia type: aspiration pneumonia GERD (gastroesophageal reflux disease) K21.9 Esophagitis presence: esophagitis presence not specified Crohn disease K50.80 Digestive disease complication type: without complication Gastrointestinal tract location: small and large intestine HTN (hypertension) I10 Hypertension type: essential hypertension
[2020-02-26 07:56] VITALS: BP 106/55; PULSE 73; RESP 20; TEMP 36.9; O2SAT 95
[2020-02-26 08:29] VITALS: PULSE 73; RESP 20; O2SAT 93; O2SAT 95
--- NOTE | 2020-02-26 08:38 | PC.NURSE ---
Spoke with Eddy Dean on the phone this morning at 0830. He states that he wasted 2mg of morphine in the pts room on 02/24/20. He threw it in the sharps container because the pt was in a COVID precaution room
--- NOTE | 2020-02-26 10:00 | ECG_ITS ---
Measurements Intervals [place] Rate: 79 P: 67 OK: 159 QRS: -15 QRSD: 113 T: 41 QT: 397 QTc: 456 SINUS RHYTHM WITH MARKED SINUS ARRHYTHMIA INCOMPLETE RIGHT BUNDLE BRANCH BLOCK [90+ ms QRS DURATION, TERMINAL R IN V1/V2, 40+ ms S IN I/aVL/V4/V5/V6] Compared to ECG 04/27/2019 17:42:55 Sinus bradycardia no longer present Electronically Signed On 02-26-2020 20:35:01 CDT by Kortney Hess M.D. [email or web address]
[2020-02-26 10:20] VITALS: PULSE 73; RESP 20; O2SAT 95
[2020-02-26] MEDS: lactobacillus 1 Tablet 1 TAB PO (10:34)
[2020-02-26] MEDS: clindamycin 150 mg Capsule 600 MG PO (10:34)
[2020-02-26] MEDS: lisinopril 20 mg Tablet PO (10:36)
--- NOTE | 2020-02-26 11:44 | PC.RESP ---
Smoking Cessation information to patient along with schedule of classes and vaping concerns
== END 2020-02-26 11:53 | disposition home or self-care (01) | DRG 178 ==
LOC: ER 12:58 → ICU 19:41 → MEDSURG 02-25 20:19
PROVIDERS: Family Medicine; Admitting Provider Hospitalist; PCP Nurse Practitioner Family; Visit Provider Hospitalist
DX: J69.0 Pneumonitis due to inhalation of food and vomit (principal); K50.80 Crohn's disease of both small and large intestine without complications; K50.90 Crohn's disease, unspecified, without complications; I10 Essential (primary) hypertension; R09.02 Hypoxemia; K21.9 Gastro-esophageal reflux disease without esophagitis; F17.298 Nicotine dependence, other tobacco product, with other nicotine-induced disorders
CPT/HCPCS: 12345; 36415; 71045; 74177; 80048; 80053; 81003; 83605; 83690; 83735; 84100; 84484; 85025; 87040; 87635; 87804; 93005; 96372; 96375; 99283; J1650; J1956; J2270; J2405; J3475; J3490; J7030; J7050; Q9967

== ENCOUNTER 2021-02-23 13:41 | Outpatient (CLI) | payer MEDICARE, BC, SELFPAY ==
--- NOTE | 2021-02-23 13:55 | CT_ITS ---
WS: [id number] LDCT LUNG CANCER SCREENING HISTORY: NICOTINE DEPENDENCE, CIGARETTES TECHNIQUE: Axial imaging performed from the apices to 1 cm below the costophrenic angles. Coronal and sagittal reformats are submitted with axial MIP series. All CT scans at [facility] use at least one of these dose optimization techniques: automated exposure control; mA and/or kV adjustment per patient size (includes targeted exams where dose is matched to clinical indication); or iterativ e reconstruction. DLP: 55.38 mGy.cm DIvol: 1.58 mGy COMPARISON: None available. Diagnostic quality: Satisfactory Lung Nodules: Subpleural nodule measuring 7 mm at the LEFT posterior apex. There is additional fibros is at the RIGHT apex. There are 2 nodules in the periphery of the RIGHT lower lobe. One nodule measur es 5 mm, image 193 of series 3. There is an additional more anterior nodule measuring 4 mm, image 193 of series 3. Benign granuloma RIGHT middle lobe. No endobronchial lesions. Lungs: Chronic emphysema. Heart: Moderately enlarged heart with a small amount of pericardial thickening. Other findings: Mild atherosclerosis of the aorta. No aneurysm. Pulmonary artery is top normal size. Small hiatal hernia. CT/CT lung screening [id number] IMPRESSION: LUNG-RADS: 3-Probably Benign FOLLOW UP: 6 Month LDCT OTHER FINDINGS (S MODIFIER): None.
== END 2021-02-23 13:42 | disposition home or self-care (01) ==
LOC: RAD 13:44
PROVIDERS: PCP Nurse Practitioner Family; Visit Provider Nurse Practitioner Family
DX: Z12.2 Encounter for screening for malignant neoplasm of respiratory organs (principal); F17.210 Nicotine dependence, cigarettes, uncomplicated
CPT/HCPCS: 71271

== ENCOUNTER → 2021-04-08 11:38 | Outpatient (BNVA) | payer MEDICARE, BC, SELFPAY | PROVIDERS: PCP Nurse Practitioner Family; Visit Provider Internal Medicine Pulmonary Disease | DX: J44.9 Chronic obstructive pulmonary disease, unspecified (principal); Z20.822 Contact with and (suspected) exposure to COVID-19 | CPT/HCPCS: 87635 ==

== ENCOUNTER 2021-04-12 12:47 | Outpatient (CLI) | payer MEDICARE, BC, SELFPAY ==
--- NOTE | 2021-04-12 14:01 | PFTS_ITS ---
Date of Study:04/12/21 Date of Dictation: MECHANICS: Forced vital capacity (FVC) is normal. Forced expiratory volume in one second (FEV1) is normal. FEV1/FVC is reduced. FLOW VOLUME LOOP: Reduced flow with scooping. LUNG VOLUMES: Total lung capacity (TLC) is increased. Residual volume (RV) is increased. DIFFUSING CAPACITY FOR CARBON MONOXIDE: Mild reduced. INTERPRETATION: The pulmonary function tests are consistent with mild airflow obstruction. There is no significant postbronchodilator response. Lung volumes are consistent with hyperinflation and air trapping. Gas exchange (DLCO) is mildly reduced. MTDD
== END 2021-04-12 12:48 | disposition home or self-care (01) ==
PROVIDERS: PCP Nurse Practitioner Family; Visit Provider Internal Medicine Pulmonary Disease
DX: J44.9 Chronic obstructive pulmonary disease, unspecified (principal)
CPT/HCPCS: 94060; 94618; 94726; 94729; J7611

== ENCOUNTER 2021-08-16 10:08 | Outpatient (CLI) | payer MEDICARE, BC, SELFPAY ==
--- NOTE | 2021-08-16 10:15 | CT_ITS ---
WS: [id number] CT CHEST WITHOUT INTRAVENOUS CONTRAST HISTORY: Lung Nodule TECHNIQUE: Contiguous 5 mm axial imaging performed on the thorax. Coronal and sagittal reformats are submitted. All CT scans at [facility] use at least one of these dose optimization techniques: automated exposure control; mA and/or kV adjustment per patient size (includes targeted exams where dose is matched to clinical indication); or iterative reconstruction. CONTRAST: None DLP: 680.24 mGycm COMPARISON: 02/23/2021 Lungs and central airway: Hyperinflated lungs from emphysema. Stable biapical pleural thickening. 6 m m nodule at the medial LEFT upper lobe is stable. There are additional stable nodules in the peripher y of the RIGHT lower lobe with the largest measuring 5 mm. New area of linear atelectasis with adjace nt groundglass attenuation in the RIGHT lower lobe. Pleura: Normal. No pleural effusion. Heart and pericardium: Moderately enlarged heart with coronary artery calcifications. Mediastinum and svitlana: Small mediastinal and hilar lymph nodes. Enlarging or changing lymph nodes woul d be difficult on this unenhanced study. Benign calcified RIGHT hilar lymph nodes. Vessels: Moderate atherosclerosis and ectasia thoracic aorta. Moderate atherosclerosis at the origin of the great vessels. Very slight bulging of the contour of the proximal descending aorta laterally i s unchanged. Pulmonary artery size is normal. Chest wall and lower neck: RIGHT thyroid nodule measures 13 mm. Upper abdomen: Continued atherosclerosis into the suprarenal aorta. Splenic granulomata. Osseous structures: RIGHT curvature thoracic spine. CT/CT chest wo con [id number] IMPRESSION: 1. No change in size or appearance of subcentimeter RIGHT lower and LEFT upper lobe pulmonary nodules. Consider 12 month follow-up chest CT. 2. Chronic emphysema. 3. Mild groundglass attenuation with atelectasis RIGHT lower lobe probably an area of pneumonitis. 4. Moderate atherosclerosis and ectasia thoracic aorta.
== END 2021-08-16 10:09 | disposition home or self-care (01) ==
PROVIDERS: PCP Nurse Practitioner Family; Visit Provider Internal Medicine Pulmonary Disease
DX: R91.1 Solitary pulmonary nodule (principal); J43.9 Emphysema, unspecified; J98.11 Atelectasis; I70.90 Unspecified atherosclerosis; I77.810 Thoracic aortic ectasia
CPT/HCPCS: 71250

== ENCOUNTER 2021-09-02 11:45 | Outpatient (CLI) | payer MEDICARE, BC, SELFPAY ==
--- NOTE | 2021-09-02 12:00 | USCV_ITS ---
Milagros Champagne Age: 71 Gender: F : 1950 Exam Date: 09/02/2021 12:15 Ordering Phys: Idalmis Manning MD ([email or web address]) Technologist: Exam Location: [facility] [place] Indication: Atrial Fibrillation, mitral regurgitation BP: 139 / 92 HR: 51 Rhythm: Atrial fibrillation Technical Quality: Good MEASUREMENTS (Male / Female) Normal Values 2D ECHO LV Diastolic Diameter PLAX 3.9 cm 4.2 - 5.9 / 3.9 - 5.3 cm LV Systolic Diameter PLAX 2.8 cm IVS Diastolic Thickness 1.0 cm 0.6 - 1.0 / 0.6 - 0.9 cm IVS Systolic Thickness 1.5 cm LVPW Diastolic Thickness 0.9 cm 0.6 - 1.0 / 0.6 - 0.9 cm LVPW Systolic Thickness 1.1 cm LVOT Diameter 2.0 cm LV Ejection Fraction 2D Teich 54.9 % LV Ejection Fraction MOD 2C 61.8 % LV Ejection Fraction 2C AL 61.9 % LA Diameter 3.9 cm LA Width 3.8 cm LA Height 6.0 cm RA Width 3.8 cm RA Height 5.6 cm M-MODE Aortic Annulus Diameter 3.4 cm LA Ao Ratio MM 1.3 DOPPLER AV Peak Velocity 178.0 cm/s LVOT Peak Velocity 94.0 cm/s AV Area Cont Eq vti 2.1 cm squared AV Area Cont Eq pk 1.7 cm squared MV E' Velocity 13.0 cm/s TR Peak Velocity 314.0 cm/s TR Peak Gradient 39.4 mmHg PV Peak Velocity 76.0 cm/s FINDINGS Left Ventricle Normal left ventricular size, systolic function and mildly increased wall thickness, with no regional wall motion abnormalities. Left ventricular ejection fraction is estimated at 60 %. Mild concentric left ventricular hypertrophy. Rhythm precludes evaluation of diastolic function. Right Ventricle Normal right ventricular size and systolic function. Mild pulmonary hypertension, RVSP 42 mmHg. Right Atrium Mildly increased right atrial size. Left Atrium Mildly increased left atrial size. Mitral Valve Mild mitral annular calcification. Mildly thickened mitral valve. No mitral valve stenosis. Mild-moderate mitral valve regurgitation. Aortic Valve Moderately thickened trileaflet aortic valve. No aortic valve stenosis. Mild aortic valve regurgitation. Tricuspid Valve Structurally normal tricuspid valve. No tricuspid valve stenosis. Moderate tricuspid valve regurgitation. Pulmonic Valve Pulmonic valve not well visualized. Trace pulmonary valve regurgitation. Pericardium No pericardial effusion. Aorta Normal size aortic root and proximal ascending aorta. CONCLUSIONS 1. Normal left ventricular size, systolic function and mildly increased wall thickness, with no regional wall motion abnormalities. Left ventricular ejection fraction is estimated at 60 %. Mild concentric left ventricular hypertrophy. 2. Mild-moderate mitral valve regurgitation. 3. Moderate tricuspid valve regurgitation. 4. Moderately thickened trileaflet aortic valve. Mild aortic valve regurgitation. 5. Mild biatrial enlargement. 6. Mild pulmonary hypertension with pulmonary artery pressure estimated at 42 mm Hg. 7. When compared to previous echocardiogram dated 05/21/2019, there is moderate tricuspid valve regurgitation now. Idalmis Manning MD (Electronically Signed) Final Date: 08 September 2021 08:24 S
[2021-09-02 12:03] VITALS: BMI 25.8
[2021-09-02] MEDS: metoprolol tartrate 1 mg/1 mL SDV 5 mL 5 MG IVP (12:27)
--- NOTE | 2021-09-02 12:28 | PC.NURSE ---
Elevated HR Pt HR 125, 85% of target HR, when hooked up to telemetry for stress echo. BP 139/91. Pt states she has been off Atenolol for 3 days for stress test and this is what happens when she does not take it. Dr Manning notified of elevated HR and states to give pt 5mg IV Metoprolol ordered in the stress test protocol, to cancel stress echo and to perform echocardiogram only. Pt updated on plan. Dr Manning states she will reorder a different type of stress test and notify pt with change. 5mg IVP Metoprolol given at this time. WIll monitor.
--- NOTE | 2021-09-02 12:41 | ECG_ITS ---
[facility] Test Date: 2021-09-02 Pat Name: Milagros Champagne Department: Room: Gender: Female School Curriculum Developer: : 1950 Requested By: Idalmis Manning Order Number: [id number] Sapphire MD: Idalmis Manning M.D. Measurements Intervals [place] Rate: 112 P: [place]: QRS: -29 QRSD: 101 T: 30 QT: 324 QTc: 443 Interpretive Statements ATRIAL FIBRILLATION WITH RAPID VENTRICULAR RESPONSE BORDERLINE LEFT AXIS DEVIATION [QRS AXIS < -20] INCOMPLETE RIGHT BUNDLE BRANCH BLOCK [90+ ms QRS DURATION, TERMINAL R IN V1/V2, 40+ ms S IN I/aVL/V4/V5/V6] ABNORMAL RHYTHM ECG Compared to ECG 02/26/2020 09:20:39 Sinus rhythm no longer present Sinus arrhythmia no longer present Electronically Signed On 09-03-2021 16:13:20 ASSISTANT HEALTH EDUCATOR by Idalmis Manning M.D. [id number]
--- NOTE | 2021-09-02 13:00 | PC.NURSE ---
Heart Rate/Rhythm Dr Manning notified of new onset of Afib with RVR. EKG stat ordered and states she will be up to see patient. Pt asymptomatic with rhythm.
[2021-09-02 13:22] VITALS: PULSE 100
== END 2021-09-02 11:46 | disposition home or self-care (01) ==
LOC: CDL 11:47
PROVIDERS: PCP Nurse Practitioner Family; Visit Provider Internal Medicine Cardiovascular Disease
DX: R07.9 Chest pain, unspecified (principal); I48.91 Unspecified atrial fibrillation; I45.19 Other right bundle-branch block; R94.31 Abnormal electrocardiogram [ECG] [EKG]; I08.3 Combined rheumatic disorders of mitral, aortic and tricuspid valves; I27.20 Pulmonary hypertension, unspecified
CPT/HCPCS: 93005; 93306; J3490

== ENCOUNTER → 2021-09-13 10:00 | Outpatient (BNVA) | payer MEDICARE, BC, SELFPAY | PROVIDERS: PCP Nurse Practitioner Family; Visit Provider Nurse Practitioner Family | DX: Z00.00 Encounter for general adult medical examination without abnormal findings (principal); I10 Essential (primary) hypertension; I48.91 Unspecified atrial fibrillation; K50.80 Crohn's disease of both small and large intestine without complications; R91.1 Solitary pulmonary nodule; K21.9 Gastro-esophageal reflux disease without esophagitis; Z78.0 Asymptomatic menopausal state; F17.200 Nicotine dependence, unspecified, uncomplicated; Z12.31 Encounter for screening mammogram for malignant neoplasm of breast | CPT/HCPCS: 80053; 80061; 81003; 82306; 82607; 84443; 85025 ==

== ENCOUNTER 2021-10-01 09:31 | Outpatient (CLI) | payer MEDICARE, BC, SELFPAY ==
[2021-10-01 09:40] VITALS: BMI 26.3
--- NOTE | 2021-10-01 09:40 | ECG_ITS ---
[facility] Test Date: 2021-10-01 Pat Name: Milagros Champagne Department: Room: Gender: Female Certified Shorthand Reporter: : 1950 Requested By: Idalmis Manning Order Number: [id number] Sapphire MD: Idalmis Manning M.D. Interpretive Statements NAME OF STUDY: LEXISCAN SESTAMIBI STRESS TEST INDICATION: Dyspnea on Exertion PROCEDURE: At the baseline, the blood pressure was 167/103 mmHg, oxygen saturation 96% with a heart rate of 90 bpm. The electrocardiogram showed atrial fibrillation with controlled ventricular response. Nonspecific ST-T wave changes. The Lexiscan was infused over a period of 20 seconds. A total of 0.4 milligrams of Lexiscan was infused. The stress phase was continued for a total of 5 minutes. Heart rate at the end of the stress phase was 91 bpm, oxygen saturation 99% with a blood pressure of 139/86 mmHg. The EKG at the peak infusion revealed no significant ST-T wave changes. The study was terminated protocol completion. Patient developed intraprocedural shortness of breath which resolved by discharge. Sestamibi was injected 20 seconds after the Lexiscan infusion. Blood pressure at the end of the recovery phase was 133/79 mmHg, oxygen saturation 95% with a heart rate of 102 beats per minute. CONCLUSION: 1. No significant EKG changes with the LexiScan infusion. 2. No LexiScan induced chest pain or cardiac arrhythmia. 3. Normal blood pressure and heart rate response. 4. Sestamibi/sestamibi perfusion scan pending; see separate report. Electronically Signed On 10-06-2021 12:36:29 EXECUTIVE PASTRY CHEF by Idalmis Manning M.D. [id number]
--- NOTE | 2021-10-01 09:40 | NMCV_ITS ---
NM arabella perf SPECT r/s* [id number] Milagros Champagne Age: 71 Gender: F : 1950 Exam Date: 10/01/2021 11:33 Ordering Phys: Idalmis Manning MD ([email or web address]) Technologist: HÉCTOR Nolan Exam Location: [facility] Indications: CHEST PAIN STRESS TEST Please see separate stress test report in [facility] for full findings IMAGE PROTOCOL Rest/Stress 1 Lexiscan Day Radiopharmaceutical Dose (mCi) Administration Site Administered by Rest: Tc-99m 10.8 IV HÉCTOR Merino Sestamibi Stress:Tc-99m 32.9 IV HÉCTOR Nolan Sestamitreva Rest: 01-Oct-2021 60 Discovery 630 Stress: 01-Oct-2021 30 Discovery 630 0.4mg Lexiscan. Images obtained in supine and prone position. SPECT RESULTS Technical Quality: Excellent Raw Data Analysis: Normal Image Corrections: No attenuation or motion correction applied Summed Stress Score: 1 Summed Rest Score: 0 Summed Difference Score: 1 PERFUSION FINDINGS Small size perfusion abnormality of mild severity of apical lateral and apical fisher on stress images. FUNCTIONAL RESULTS (calculated via Gated SPECT) Stress Image LV EF (%): 58 Stress EDV (mL):83 TID: 1.35 Stress ESV (mL):35 FUNCTIONAL FINDINGS: The left ventricle is normal in size. Transient Ischemia Dilatation of 1.4. There is normal left ventricular systolic function. The left ventricular ejection fraction is normal with a value of 58%. There is normal left ventricular wall thickening with no regional wall motion abnormality. IMPRESSIONS 1. Small size reversible perfusion abnormality of mild severity of apical lateral and apical wall on stress images. 2. This is suggestive of small area of ischemia in left anterior descending artery territory. 3. Overall left ventricular systolic function is normal without regional wall motion abnormalities, LVEF=58%. 4. Transient ischemic dilation index increased at 1.4. This may represent subendocardial ischemia or multivessel coronary artery disease. Clinical correlation is advised. 5. No EKG changes with Lexiscan infusion. No prior similar studies to compare. Idalmis Manning MD (Electronically Signed) Final Date: 06 October 2021 13:11 S
[2021-10-01] MEDS: regadenoson 0.4 Mg/5 ml Syringe IVP (12:21)
[2021-10-01 12:36] VITALS: BP 135/68; PULSE 72
== END 2021-10-01 09:32 | disposition home or self-care (01) ==
LOC: CDL 09:32
PROVIDERS: PCP Nurse Practitioner Family; Visit Provider Internal Medicine Cardiovascular Disease
DX: R06.09 Other forms of dyspnea (principal); R06.02 Shortness of breath
CPT/HCPCS: 78452; 93017; A9500; J2785

== ENCOUNTER 2021-10-19 14:32 | Outpatient (CLI) | payer MEDICARE, BC, SELFPAY ==
--- NOTE | 2021-10-19 14:45 | XR_ITS ---
WS: [id number] SCREENING DEXA SCAN PaeDae CLINICAL INFORMATION: Z78.0 - Asymptomatic menopausal state COMPARISON: None. FINDINGS: The L1-L4 bone mineral density measures 0.938 g/cm2. This corresponds to a T score score of -2.0 and Z score of -0.7. Left femoral neck bone mineral density measures 0.700 g/cm2. This corresponds to a T score of -2.4 an d Z score of -1.2. Right femoral neck bone mineral density measures 0.670 g/cm2. This corresponds to a T score -2.7of an d Z score of -1.4. Mean femoral neck bone mineral density measures 0.685 g/cm2. This corresponds to a T score of -2.6 an d Z score of -1.3. XR/XR DEXA axial skeleton* [id number] IMPRESSION: Osteopenia in the lumbar spine. Osteoporosis in the femoral necks. Patient's FRAX calculated 10 year probability for major osteoporotic fracture i s 16.5 % and osteoporotic hip fracture is 6.5%.
== END 2021-10-19 14:33 | disposition home or self-care (01) ==
PROVIDERS: PCP Nurse Practitioner Family; Visit Provider Nurse Practitioner Family
DX: Z78.0 Asymptomatic menopausal state (principal); M85.88 Other specified disorders of bone density and structure, other site; M81.0 Age-related osteoporosis without current pathological fracture
CPT/HCPCS: 77080

== ENCOUNTER 2021-12-16 11:09 | Outpatient (CLI) | payer MEDICARE, BC, SELFPAY ==
--- NOTE | 2021-12-16 12:00 | MM_ITS ---
WS: [id number] BILATERAL SCREENING DIGITAL MAMMOGRAM WITH CAD HISTORY: Z78.0 - Asymptomatic menopausal state COMPARISON: 08/30/2018 Bilateral CC and MLO views submitted. Computer aided detection analyzed. Breast composition: There are scattered areas of fibroglandular density. No suspicious masses, microc alcifications or architectural distortion. MM/[place] [id number] IMPRESSION: BI-RADS: 1-Negative FOLLOW UP: 1 Year Follow-up
== END 2021-12-16 11:10 | disposition home or self-care (01) ==
PROVIDERS: PCP Nurse Practitioner Family; Visit Provider Nurse Practitioner Family
DX: Z12.31 Encounter for screening mammogram for malignant neoplasm of breast (principal)
CPT/HCPCS: 77067

== ENCOUNTER → 2022-02-01 12:35 | Outpatient (BNVA) | payer MEDICARE, BC, SELFPAY | PROVIDERS: PCP Nurse Practitioner Family; Visit Provider Nurse Practitioner Family | DX: I10 Essential (primary) hypertension (principal); E55.9 Vitamin D deficiency, unspecified; M81.0 Age-related osteoporosis without current pathological fracture; I48.91 Unspecified atrial fibrillation; R06.00 Dyspnea, unspecified | CPT/HCPCS: 80053; 80061; 82306; 83735; 84443; 85025 ==

== ENCOUNTER → 2022-04-26 13:58 | Outpatient (BNVA) | payer MEDICARE, BC, SELFPAY | PROVIDERS: PCP Nurse Practitioner Family; Visit Provider Internal Medicine Pulmonary Disease | DX: J44.9 Chronic obstructive pulmonary disease, unspecified (principal); F17.200 Nicotine dependence, unspecified, uncomplicated; R91.1 Solitary pulmonary nodule; R91.8 Other nonspecific abnormal finding of lung field | CPT/HCPCS: 99214 ==

== ENCOUNTER 2022-09-15 12:05 | Outpatient (CLI) | payer MEDICARE, BC, SELFPAY ==
--- NOTE | 2022-09-15 12:30 | CTR_ITS ---
PROCEDURE INFORMATION: Exam: CT Chest Without Contrast; Diagnostic Exam date and time: 09/15/2022 12:25 PM Age: 72 years old Clinical indication: Condition or disease; Lung condition and disease; Pulmonary nodule, solitary; Additional info: R91.1 - solitary pulmonary nodule TECHNIQUE: Imaging protocol: Diagnostic computed tomography of the chest without contrast. Radiation optimization: All CT scans at this facility use at least one of these dose optimization techniques: automated exposure control; mA and/or kV adjustment per patient size (includes targeted exams where dose is matched to clinical indication); or iterative reconstruction. COMPARISON: CT chest wo con [id number] 08/16/2021 10:16 AM RADIATION DOSE METRICS: Total DLP (mGy-cm): 561.35 FINDINGS: Thyroid: Multiple right thyroid nodules measuring up to 1.3 cm. These are unchanged. No follow-up imaging is recommended. Lungs: Right upper lobe calcified granuloma. New 3 mm left lower lobe nodule, series 3, image 38. Mild atelectasis in the right lower lobe and lingula. The lungs are otherwise clear. Stable mild scarring in the lung apices. Pleural spaces: Unremarkable. No pneumothorax. No pleural effusion. Heart: Coronary artery calcifications. The heart size is normal. Lymph nodes: Calcified mediastinal and right hilar lymph nodes. Vasculature: Unremarkable. No aortic aneurysm. Spleen: Calcified granulomas in the spleen. Bones/joints: Scoliosis and degenerative changes of the spine. No fracture identified. Soft tissues: Unremarkable. CT/CT chest wo con [id number] IMPRESSION: 1. New 3 mm left lower lobe nodule. The other previously described nodules are unchanged and have the appearance of scar. For patients at low risk (minimal or absent history of smoking and of other known risk factors), no routine follow-up is indicated. For patients at high risk (history of smoking or of other known risk factors), consider optional CT Chest at 12 months. (Reference: Keegan) References: Keegan Boles et al. Guidelines for Management of Incidental Pulmonary Nodules Detected on CT Images: From the Fleischner Society 2017. Radiology. 2017;284(1):228-243. COMMENTS: Consistent with the [place] [employer]'s Incidental Findings Committee white paper (J Am Brigid Radiol 2015): In patients aged 35 years and older with an incidental thyroid nodule equal to or greater than 1.[address], MRI or extrathyroidal US, further evaluation with dedicated thyroid US is recommended for patients with normal life expectancy and without comorbidities. For smaller nodules without suspicious features, no further evaluation or follow up is recommended.
== END 2022-09-15 12:06 | disposition home or self-care (01) ==
LOC: RAD 12:07
PROVIDERS: PCP Nurse Practitioner Family; Visit Provider Internal Medicine Pulmonary Disease
DX: R91.1 Solitary pulmonary nodule (principal)
CPT/HCPCS: 71250

== ENCOUNTER → 2022-09-29 14:55 | Outpatient (BNVA) | payer MEDICARE, BC, SELFPAY | PROVIDERS: PCP Nurse Practitioner Family; Visit Provider Internal Medicine Cardiovascular Disease | DX: I48.91 Unspecified atrial fibrillation (principal); I10 Essential (primary) hypertension; I25.10 Atherosclerotic heart disease of native coronary artery without angina pectoris; R94.39 Abnormal result of other cardiovascular function study; I77.9 Disorder of arteries and arterioles, unspecified; K21.9 Gastro-esophageal reflux disease without esophagitis; F17.290 Nicotine dependence, other tobacco product, uncomplicated; Z79.01 Long term (current) use of anticoagulants | CPT/HCPCS: 99214 ==

== ENCOUNTER 2022-11-01 06:14 | Inpatient (IN) | payer MEDICARE, BC, SELFPAY ==
[2022-11-01] VITALS (28 sets, daily range): BP systolic 96–144; BP diastolic 46–92; PULSE 62–106; RESP 14–22; TEMP 36.7–37.6; O2SAT 87–99; BMI 22.2
--- NOTE | 2022-11-01 06:24 | XRR_ITS ---
PROCEDURE INFORMATION: Exam: XR Chest Exam date and time: 11/01/2022 6:27 AM Age: 72 years old Clinical indication: Cough and dyspnea and shortness of breath; Prior surgery; Surgery type: 4 x for crohns disease; Additional info: Dyspnea/cough TECHNIQUE: Imaging protocol: Radiologic exam of the chest. Views: 1 view. COMPARISON: CT chest wo con [id number] 09/15/2022 12:25 PM FINDINGS: Lungs: Dense consolidation in the mid and lower right lung concerning for pneumonia. The left lung is clear. The right upper lung is clear. Pleural spaces: No pneumothorax. No pleural effusion. Heart/Mediastinum: The cardiomediastinal silhouette is within normal limits. Bones/joints: Scoliotic curvature of the spine. XR/XR chest 1V portable [id number] IMPRESSION: Dense consolidation in the mid and lower right lung concerning for pneumonia.
--- NOTE | 2022-11-01 06:36 | W.ED.SOB ---
HPI - SOB/Dyspnea General: Chief Complaint: Shortness of Breath/Dyspnea Stated Complaint: SOB, N/V Time Seen by Provider: 11/01/22 06:23 Source: patient Mode of arrival: EMS History of Present Illness: HPI Narrative: 72-year-old female with a history of COPD and irritable bowel. Patient states she has been increasingly short of breath since midnight last night. She states she had some spicy stacks caused her to wake up coughing she thinks she aspirated some of them. She had some nausea no vomiting. She tried a nebulizer at home is not able to use it did not feel like it really helped any she did get another nebulizer in route along with some Zofran. She denies any chest pain. She is not normally on oxygen initially when I came in to see the patient she was on 4 L by nasal cannula satting in the mid and upper 90s. When it was turned off she sats 90 to 92% consistently. MD elicited complaint: shortness of breath and cough Pertinent past history: COPD Onset (ago): hour(s) Timing: constant Exacerbating factors: exertion Relieving factors: nothing Known history of: COPD Associated symptoms: Deny abdominal pain, chest congestion, chest pain, cough, diaphoresis, dizziness, extremity pain, fever(s), hemoptysis, lightheadedness, myalgias, nausea, orthopnea, palpitations, paresthesias, polydipsia, polyuria, rash, sense of impending doom, syncope or vomiting Treatment prior to arrival: oxygen and bronchodilator Review of Systems Const: Denies: fever(s), chills or diaphoresis ENMT: Denies: throat pain, ear or mastoid pain, nasal discharge or nasal congestion Card: Denies: chest pain, palpitations, lightheadedness, syncope or orthopnea Resp: Reports: dyspnea, non-productive cough and wheezing; Denies: productive cough, hemoptysis or chest congestion GI: Denies: abdominal pain, nausea or vomiting : Denies: flank pain, difficulty voiding, dysuria, urinary frequency or urinary urgency Musc: Denies: extremity pain Skin/Breast: Denies: rash or pruritus Neuro: Denies: dizziness Endo: Denies: polyuria or polydipsia PFS ED PFSH: Medical History Crohn disease On azathioprine Dyspnea on exertion GERD (gastroesophageal reflux disease) HTN (hypertension) Syncope Has been a recurrent problem, though now associated with dizziness but no further actual loss of consciousness, follows with Dr. Manning. Etiology not clear. Surgical History History of appendectomy History of bowel resection large and small bowel, 6 different ORs, no colostomy, some dumping syndrome History of cholecystectomy History of hysterectomy Family History Other Atrial fibrillation Stroke Social History Smoking and tobacco status: current every day smoker e-cigarettes E-Cigarette Details: vaporizer device E-cig/vape details: 3mg of nicotine ([id number] then switched to vape) Quit status (tobacco): considering quitting Second hand smoke exposure: No Smoking risk assessment/counseling performed?: Yes Alcohol intake: current Alcohol intake frequency: holidays/special occasions only Alcohol type: wine Lives independently: Yes Household members: spouse Marital status: Current occupational status: retired Previous occupational history: Retired nurse Pets and animals: Yes History of recent travel: No Current gender identity: Female Physical Exam Const: GENERAL APPEARANCE: cooperative and comfortable ORIENTATION/CONSCIOUSNESS: Yes awake, Yes oriented to person, Yes oriented to place and Yes oriented to time HENMT: COMMON NORMALS: normocephalic, atraumatic and hearing grossly normal bilaterally HEAD & SCALP: normocephalic and atraumatic Resp: COMMON NORMALS: normal respiratory effort, No retractions and No use of accessory muscles AUSCULTATION: rales on the right at the base and wheezes Cardio: COMMON NORMALS: regular rate, regular rhythm and No murmurs present (Cardio) RATE: regular rate RHYTHM: regular rhythm GI: COMMON NORMALS: Soft to palpation and No hepatosplenomegaly present AUSCULTATION: Yes normoactive bowel sounds PALPATION: Yes Soft to palpation, No Tenderness to palpation present (GI), No Guarding due to palpation present (GI) and Yes No hepatosplenomegaly present Extremity: COMMON NORMALS: normal to inspection, capillary refill normal, no clubbing, cyanosis or edema, no calf tenderness and no pedal edema Neuro: SENSORIUM/ORIENTATION: Yes oriented to person, Yes oriented to place and Yes oriented to time Skin: COMMON NORMALS: no rashes or lesions noted GENERAL SKIN EXAM: no rashes or lesions noted Course Vital Signs: Vital signs: Vital Signs Temperature 99.6 F 11/01/22 06:20 Pulse Rate 97 11/01/22 07:10 Respiratory Rate 14 11/01/22 07:10 Blood Pressure 132/75 11/01/22 07:10 Pulse Oximetry 96 11/01/22 07:10 Oxygen Delivery Me thod 11/01/22 07:10 Oxygen Flow Rate 3 11/01/22 07:10 MDM - SOB/Dyspnea Medical Decision Making Right lower lobe pneumonia now requiring oxygen when normally she does not. Does not appear to be consistent with aspiration. She is requiring 3 L by nasal cannula. Will admit to hospital discussed with Dr. dwyer orders written started Levaquin cultures done Medical Records I reviewed the patient's medical records. Lab Data I reviewed the patient's lab results. 11/01/22 07:00 11/01/22 07:00 Labs/Radiology: Radiology Impressions Chest X-Ray 11/01/22 06:24 IMPRESSION: Dense consolidation in the mid and lower right lung concerning for pneumonia. Laboratory Results WBC 11.3 10^3/uL (4.0-10.0) H 11/01/22 07:00 RBC 3.81 10^6/uL (4.1-5.3) L 11/01/22 07:00 Hgb 13.0 g/dL (11.5-15.3) 11/01/22 07:00 Hct 39.2 % (37.0-47.0) 11/01/22 07:00 MCV 102.9 fl (81-99) H 11/01/22 07:00 MCH 34.1 pg (28.0-34.0) H 11/01/22 07:00 MCHC 33.2 g/dL (30.0-36.0) 11/01/22 07:00 RDW 13.2 % (12.1-15.1) 11/01/22 07:00 Plt Count 213 10^3/cmm (130-400) 11/01/22 07:00 MPV 10.7 fL (7.4-10.4) H 11/01/22 07:00 Neut % (Auto) 81.9 % 11/01/22 07:00 Lymph % (Auto) 10.2 % 11/01/22 07:00 Patrick % (Auto) 7.1 % 11/01/22 07:00 Eos % (Auto) 0.3 % 11/01/22 07:00 Baso % (Auto) 0.3 % 11/01/22 07:00 Neut # (Auto) 9.24 10^3/uL (1.8-7.7) H 11/01/22 07:00 Lymph # (Auto) 1.2 10^3/uL (0.8-4.8) 11/01/22 07:00 Patrick # (Auto) 0.8 10^3/uL (0.2-0.9) 11/01/22 07:00 Eos # (Auto) 0.0 10^3/uL (0.0-0.8) 11/01/22 07:00 Baso # (Auto) 0.0 10^3/uL (0.0-0.1) 11/01/22 07:00 Nucleated RBC % (auto) 0 % 11/01/22 07:00 Nucleated RBCs # 0.0 /100WBC 11/01/22 07:00 Specimen Type Arterial 11/01/22 08:21 Sample Site Radial, right 11/01/22 08:21 ABG pH 7.47 (7.35-7.45) H 11/01/22 08:21 ABG pCO2 39.7 mmHg (35-45) 11/01/22 08:21 ABG pO2 79.2 mmHg (80.0-100.0) L 11/01/22 08:21 ABG HCO3 28.5 mmol/L (22-26) H 11/01/22 08:21 ABG O2 Saturation 95.3 11/01/22 08:21 ABG Base Excess 4.5 mmol/L (-2.0-2.0) H 11/01/22 08:21 Jesus Test Pos 11/01/22 08:21 A-a O2 Gradient 2.6 mmHg (5-10) L 11/01/22 08:21 Hematocrit 40.9 % (37-47) 11/01/22 08:21 Hgb O2 Saturation 94.0 % (95-100) L 11/01/22 08:21 Carboxyhemoglobin 0.3 %THgb (0.4-20.1) L 11/01/22 08:21 Methemoglobin 0.9 % (0.4-1.5) 11/01/22 08:21 Total Hemoglobin 13.3 g/dL (12-16) 11/01/22 08:21 Sodium 138.0 mmol/L (131-143) 11/01/22 08:21 Potassium 3.8 mmol/L (3.5-5.0) 11/01/22 08:21 Glucose 110.0 mg/dL (70-115) 11/01/22 08:21 Ionized Calcium 1.2 mmol/L (1.1-1.4) 11/01/22 08:21 O2 Delivery Device Nc 11/01/22 08:21 O2 Liters/Min 3.0 % 11/01/22 08:21 Cooking Casing And Drying Supervisor ID [place] 11/01/22 08:21 Sodium 136 mmol/L (136-145) 11/01/22 07:00 Potassium 4.0 mmol/L (3.5-5.1) 11/01/22 07:00 Chloride 100 mmol/L (98-107) 11/01/22 07:00 Carbon Dioxide 27 mmol/L (22-29) 11/01/22 07:00 Anion Gap 13.0 (5-19) 11/01/22 07:00 BUN 17 mg/dL (8-23) 11/01/22 07:00 Creatinine 1.0 mg/dL (0.5-0.9) H 11/01/22 07:00 GFR Calculation Not Reportable 11/01/22 07:00 Glucose 103 mg/dL (65-115) 11/01/22 07:00 Calculated Osmolality 284 mOsm/kg (285-295) L 11/01/22 07:00 Calcium 8.6 mg/dL (8.5-10.5) 11/01/22 07:00 Total Bilirubin 0.8 mg/dL (0.15-1.2) 11/01/22 07:00 AST 23 U/L (0-32) 11/01/22 07:00 ALT 18 U/L (0-33) 11/01/22 07:00 Alkaline Phosphatase 85 U/L (35-105) 11/01/22 07:00 Total Protein 6.0 g/dL (6.6-8.7) L 11/01/22 07:00 Albumin 3.9 g/dL (3.5-5.2) 11/01/22 07:00 Globulin 2.1 g/dL (1.3-4.6) 11/01/22 07:00 Urine Color Straw (Yellow) 11/01/22 06:25 Urine Appearance Clear (CLEAR) 11/01/22 06:25 Urine pH 7 (5-7) 11/01/22 06:25 Ur Specific [place] 1.005 (1.005-1.030) 11/01/22 06:25 Urine Protein Neg (Negative) 11/01/22 06:25 Urine Glucose (UA) Norm (Normal) 11/01/22 06:25 Urine Ketones Negative (Negative) 11/01/22 06:25 Urine Blood Neg (Negative) 11/01/22 06:25 Urine Nitrate Negative (Negative) 11/01/22 06:25 Urine Bilirubin Neg (Negative) 11/01/22 06:25 Urine Urobilinogen Norm mg/dL (Negative) 11/01/22 06:25 Ur Leukocyte Esterase Negative (Negative) 11/01/22 06:25 Discharge Plan Discharge Condition: Stable Prescriptions: No Action pantoprazole 40 mg tablet,delayed release (DR/EC) 40 mg PO DAILY famotidine [Pepcid AC] 20 mg tablet 20 mg PO DAILY zinc 50 mg tablet 50 mg PO DAILY cholecalciferol (vitamin D3) 10 mcg (400 unit) capsule 10 mcg PO DAILY furosemide 20 mg tablet 20 mg PO DAILY PRN (Reason: edema) potassium chloride 10 mEq tablet extended release 10 meq PO DAILY PRN bupropion HCl [Wellbutrin SR] 150 mg tablet sustained-release 12 hr 150 mg PO BID promethazine 25 mg tablet 25 mg PO Q6H PRN meclizine 25 mg tablet 25 mg PO TID PRN alprazolam [Xanax] 0.5 mg tablet 0.5 mg PO BID PRN ascorbic acid (vitamin C) 1,000 mg tablet 500 mg PO DAILY azathioprine 50 mg tablet 50 mg PO DAILY metoprolol tartrate 100 mg tablet 100 mg PO BID Qty: 180 3RF lisinopril 20 mg tablet 20 mg PO QAM Qty: 90 3RF multivitamin Tablet 1 tab PO DAILY mupirocin 2 % ointment 1 applic topical BID PRN Spiriva with HandiHaler 18 mcg capsule, w/inhalation device 1 cap inhalation DAILY Qty: 90 1RF Rx Instructions: puncture 1 cap using device; one dose = 2 inhalations Eliquis 5 mg tablet See Rx Instructions .ROUTE .COMPLEX Qty: 60 5RF Dose Instruction: TAKE ONE TABLET BY MOUTH TWICE DAILY Rx Instructions: TAKE ONE TABLET BY MOUTH TWICE DAILY simvastatin 5 mg tablet 5 mg PO DAILY Qty: 90 3RF alendronate 70 mg tablet See Rx Instructions .ROUTE .COMPLEX Qty: 4 0RF Dose Instruction: TAKE ONE TABLET BY MOUTH EVERY 7 DAYS Rx Instructions: TAKE ONE TABLET BY MOUTH EVERY 7 DAYS Vitamin B-12 1,000 mcg Tablet 1,000 mcg PO DAILY Ventolin HFA 90 mcg/actuation Hfa Aerosol Inhaler 2 puff inhalation Q6H PRN (Reason: Shortness Of Breath) Qty: 18 0RF Floranex 1 million cell Tablet 1 tab PO BID Qty: 60 0RF Coding Level of Care Code ED Director Electronics for Chg Fwd Exam Detailed
[2022-11-01] MEDS: ipratropium-albuterol 3 mL Neb INHALATION ×3 (06:45→22:38)
[2022-11-01 06:47] LABS: Add Urine Microscopic? NO; Charge for UA Resulting for Rev
[2022-11-01 06:51] LABS: Bilirubin Urine Neg (Negative); Blood Urine Neg (Negative); Glucose Urine UA Norm (Normal); Ketones Urine Negative (Negative); Leukocyte Esterase Urine Negative (Negative); Nitrate Urine Negative (Negative); Protein Urine Neg (Negative); Specific Gravity, Urine 1.005 (1.005-1.030); Urine Appearance Clear (CLEAR); Urine Color Straw (Yellow); Urobilinogen Urine Norm (Negative); pH Urine 7 (5-7)
[2022-11-01 07:15] LABS: Basophils % 0.3 %; Eosinophils % 0.3 %; Hematocrit 39.2 % (37.0-47.0); Lymphocytes # 1.2 10^3/uL (0.8-4.8); Lymphocytes % 10.2 %; Mean Corpuscular HGB Conc 33.2 g/dL (30.0-36.0); Mean Corpuscular Hemoglobin 34.1 pg (28.0-34.0); Mean Corpuscular Volume 102.9 fl (81-99); Mean Platelet Volume 10.7 fL (7.4-10.4); Monocytes # 0.8 10^3/uL (0.2-0.9); Monocytes % 7.1 %; Neutrophils # 9.24 10^3/uL (1.8-7.7); Neutrophils % 81.9 %; Nucleated Red Blood Cells % 0 %; Platelet Count 213 10^3/cmm (130-400); Red Blood Count 3.81 10^6/uL (4.1-5.3); Red Cell Distribution Width 13.2 % (12.1-15.1); White Blood Count 11.3 10^3/uL (4.0-10.0)
[2022-11-01] MEDS: levofloxacin-dextrose 5 % 750 MG/150 ML PREMIX 100 MG IV (07:25)
[2022-11-01 07:29] LABS: Alanine Aminotransferase 18 U/L (0-33); Albumin Level 3.9 g/dL (3.5-5.2); Alkaline Phosphatase 85 U/L (35-105); Aspartate Amino Transferase 23 U/L (0-32); Blood Urea Nitrogen 17 mg/dL (8-23); Calcium 8.6 mg/dL (8.5-10.5); Carbon Dioxide 27 mmol/L (22-29); Chloride 100 mmol/L (98-107); Globulin 2.1 g/dL (1.3-4.6); Glucose 103 mg/dL (65-115); Osmolality Calculated 284 mOsm/kg (285-295); Sodium 136 mmol/L (136-145); Total Bilirubin 0.8 mg/dL (0.15-1.2)
[2022-11-01 07:32] LABS: Creatinine Clr Calc Pharmacy 51.0939
[2022-11-01 08:33] LABS: ABG PCO2 39.7 mmHg (35-45); ABG PH Result 7.47 (7.35-7.45); Alveolar-Arterial Oxygen Gradi 2.6 mmHg (5-10); Arterial Blood Gas Hematocrit 40.9 % (37-47); Base Excess ABG 4.5 mmol/L (-2.0-2.0); Blood Gas Allen Test Pos; Blood Gas Operator Identificat WALCI; Blood Gas Sample Site Radial, right; Blood Gas Sample Type Arterial; Carboxyhemoglobin 0.3 %THgb (0.4-20.1); HCO3 ABG 28.5 mmol/L (22-26); Ionized Calcium Level - ABG 1.2 mmol/L (1.1-1.4); Methemoglobin 0.9 % (0.4-1.5); Oxygen Device NC; Oxygen Saturation ABG 95.3; PO2 ABG 79.2 mmHg (80.0-100.0); Potassium Level - ABG 3.8 mmol/L (3.5-5.0); Total Hemoglobin 13.3 g/dL (12-16)
--- NOTE | 2022-11-01 08:35 | PM.HP ---
Providers/Chief Complaint Primary Care Provider: TANK Jefferson Chief Complaint: SOB, N/V History of Present Illness Milagros Champagne is a 72 year old female with past medical history of atrial fibrillation, hypertension, Crohn's disease, vapes daily, severe GERD, history of aspiration pneumonia presented to the hospital via EMS today for shortness of breath and coughing. She states she ate hot chips and she has severe GERD. She believes she may have aspirated. She came to the hospital and says the ER doctor told her x-ray did not show aspiration however does show a pneumonia. She says that her nebulizer is broken so she could not take a breathing treatment at home. She became more more short of breath started coughing. Not on any oxygen at home and denies having a fever. ED course: She was given Levaquin x1. Chest x-ray shows r dense consolidation in mid and right lung concerning for pneumonia. WBC count 11.3, hemoglobin 13. Gas shows 7.47/39.7/79.2. Medications/Allergies Home Medications Medication Instructions Recorded Confirmed Last Taken Type azathioprine 50 mg tablet 50 mg PO DAILY 12/27/19 11/01/22 10/31/22 History cyanocobalamin (vitamin B-12) 1,000 mcg PO DAILY 02/24/20 11/01/22 10/31/22 History 1,000 mcg tablet (Vitamin B-12) Lactobacillus acidoph-L.bulgaricus 1 tab PO BID #60 tabs 02/26/20 11/01/22 10/31/22 Rx 1 million cell tablet (Floranex) albuterol sulfate 90 mcg/actuation 2 puff inhalation Q6H PRN 02/26/20 11/01/22 Unknown Rx aerosol inhaler (Ventolin HFA) Shortness Of Breath #18 grams cholecalciferol (vitamin D3) 10 10 mcg PO DAILY 01/07/21 11/01/22 10/31/22 History mcg (400 unit) capsule famotidine 20 mg tablet (Pepcid AC) 20 mg PO DAILY 01/07/21 11/01/22 10/31/22 History furosemide 20 mg tablet 20 mg PO DAILY PRN edema 01/07/21 11/01/22 Unknown History pantoprazole 40 mg tablet,delayed 40 mg PO DAILY 01/07/21 11/01/22 10/31/22 History release potassium chloride 10 mEq 10 meq PO DAILY PRN WITH LASIX 01/07/21 11/01/22 Unknown History tablet,extended release alprazolam 0.5 mg tablet (Xanax) 0.5 mg PO BID PRN Anxiety 07/20/21 11/01/22 Unknown History ascorbic acid (vitamin C) 1,000 mg 500 mg PO DAILY 07/20/21 11/01/22 10/31/22 History tablet bupropion HCl 150 mg tablet,12 hr 150 mg PO BID 07/20/21 11/01/22 10/31/22 History sustained-release (Wellbutrin SR) meclizine 25 mg tablet 25 mg PO TID PRN Dizziness 07/20/21 11/01/22 Unknown History promethazine 25 mg tablet 25 mg PO Q6H PRN Nausea 07/20/21 11/01/22 Unknown History tiotropium bromide 18 mcg capsule 1 cap inhalation DAILY #90 02/24/22 11/01/22 10/31/22 Rx with inhalation device (Spiriva inhalations with HandiHaler) lisinopril 20 mg tablet 20 mg PO QAM #90 tabs 04/06/22 11/01/22 10/31/22 Rx metoprolol tartrate 100 mg tablet 100 mg PO BID #180 tabs 04/06/22 11/01/22 10/31/22 Rx multivitamin 1 tab PO DAILY 09/29/22 11/01/22 10/31/22 History mupirocin 2 % topical ointment 1 applic topical BID PRN Rash 09/29/22 11/01/22 Unknown History alendronate 70 mg tablet See Rx Instructions .Route 10/19/22 11/01/22 10/31/22 Rx .COMPLEX #4 tabs simvastatin 5 mg tablet 5 mg PO DAILY #90 tabs 10/19/22 11/01/22 10/31/22 Rx apixaban 5 mg tablet (Eliquis) 5 mg PO BID 11/01/22 11/01/22 10/31/22 History Allergies Allergy/AdvReac Type Severity Reaction Status Date / Time codeine Allergy Unknown Verified 07/20/22 10:00 erythromycin base Allergy Unknown Verified 07/20/22 10:00 Penicillins Allergy Unknown Verified 07/20/22 10:00 PFSH Acute PFSH: Medical History Crohn disease On azathioprine Dyspnea on exertion GERD (gastroesophageal reflux disease) HTN (hypertension) Syncope Has been a recurrent problem, though now associated with dizziness but no further actual loss of consciousness, follows with Dr. Manning. Etiology not clear. Surgical History History of appendectomy History of bowel resection large and small bowel, 6 different ORs, no colostomy, some dumping syndrome History of cholecystectomy History of hysterectomy Family History Other Atrial fibrillation Stroke Social History Smoking and tobacco status: current every day smoker e-cigarettes E-Cigarette Details: vaporizer device E-cig/vape details: 3mg of nicotine ([id number] then switched to vape) Quit status (tobacco): considering quitting Second hand smoke exposure: No Smoking risk assessment/counseling performed?: Yes Alcohol intake: current Alcohol intake frequency: holidays/special occasions only Alcohol type: wine Lives independently: Yes Household members: spouse Marital status: Current occupational status: retired Previous occupational history: Retired nurse Pets and animals: Yes History of recent travel: No Current gender identity: Female Vitals/I&O/Wt Last Vital Signs Temp 99.6 F 11/01/22 06:20 Pulse 97 11/01/22 07:10 Resp 14 11/01/22 07:10 BP 132/75 11/01/22 07:10 Pulse Ox 96 11/01/22 07:10 O2 Del Method 11/01/22 07:10 O2 Flow Rate 3 11/01/22 07:10 Weight last 48 hrs Weight 64.41 kg Physical Exam Narrative: Sitting up in bed on 2 L nasal cannula. No conversational dyspnea no acute respiratory distress Normocephalic atraumatic Lungs clear to auscultation bilaterally with mild rhonchi at right base, no crackles present Abdomen soft nontender Normal S1-S2, no gross apparent murmurs noted Extremities no cyanosis or edema noted. Visible skin intact. Data 11/01/22 07:00 01/17/23 07:00 Micro: Microbiology 11/01/22 07:34 Blood Culture - Preliminary Blood SPECIMEN COLLECTED 11/01/22 07:31 Blood Culture - Preliminary Blood SPECIMEN COLLECTED A&P Assessment and plan (1) HTN (hypertension): (2) Pneumonia: (3) Osteoporosis: (4) Anxiety: (5) Atrial fibrillation: (6) Postmenopausal: (7) Aortic stenosis: Qualifiers: Cardiac valve disease etiology: nonrheumatic Qualified Code(s): I35.0 - Nonrheumatic aortic (valve) stenosis (8) Dyspnea on exertion: (9) Smoker: (10) Crohn disease: Qualifiers: Gastrointestinal tract location: small and large intestine Digestive disease complication type: without complication Qualified Code(s): K50.80 - Crohn's disease of both small and large intestine without complications (11) GERD (gastroesophageal reflux disease): Qualifiers: Esophagitis presence: esophagitis presence not specified Qualified Code(s): K21.9 - Gastro-esophageal reflux disease without esophagitis (12) HTN (hypertension): Qualifiers: Hypertension type: essential hypertension Qualified Code(s): I10 - Essential (primary) hypertension Plan #Right middle and lower lobe pneumonia most likely secondary to aspiration #Atrial fibrillation, chronic anticoagulation with Eliquis #Hypertension #Chronic diarrhea #Crohn's disease #Daily he uses e-cigarette/vaping ? Check procalcitonin ? Continue on Levaquin daily ? Wean off oxygen as able ? Continue on oxygen as needed ? Check sputum culture gram stain ? Check blood cultures ? Check urine culture new ? Tylenol if fever develops ? Nicotine patch offered but patient declined at this time ? DuoNeb every 4 hour as needed ? COVID test pending ? Influenza pending ? Check Legionella, Streptococcus Full code DVT prophylaxis: On Eliquis. Attestations Medical Necessity Statement*: Will cross 2 midnight stay for management of pneumonia. Patient requiring oxygen at this time. Coding Level of Care Code Acute Code for [facility] Fwd Diagnoses HTN (hypertension) I10 Pneumonia J18.9 Osteoporosis M81.0 Anxiety F41.9 Atrial fibrillation I48.91 Postmenopausal Z78.0 Aortic stenosis I35.0 Cardiac valve disease etiology: nonrheumatic Dyspnea on exertion R06.00 Smoker F17.200 Crohn disease K50.80 Gastrointestinal tract location: small and large intestine Digestive disease complication type: without complication GERD (gastroesophageal reflux disease) K21.9 Esophagitis presence: esophagitis presence not specified HTN (hypertension) I10 Hypertension type: essential hypertension
[2022-11-01 09:56] LABS: Lactic Sepsis W/Reflex 1.4 mmol/L (0.5-2.2)
[2022-11-01 09:59] LABS: Procalcitonin 0.17 ng/mL (0-0.5)
[2022-11-01] MEDS: sodium chloride 0.9% 1,000 ML 75 ML IV (10:52)
--- NOTE | 2022-11-01 15:19 | ECG_ITS ---
[facility] Test Date: 2022-11-01 Pat Name: Milagros Champagne Department: Room: 279 Gender: Female Software Development Engineer: : 1950 Requested By: Dheeraj Davis Order Number: [id number] [place] MD: Miguel Gonzalez M.D. Measurements Intervals [place] Rate: 89 P: 0 NE: 0 QRS: -29 QRSD: 105 T: -7 QT: 389 QTc: 474 Interpretive Statements ATRIAL FIBRILLATION BORDERLINE LEFT AXIS DEVIATION [QRS AXIS < -20] INCOMPLETE RIGHT BUNDLE BRANCH BLOCK [90+ ms QRS DURATION, TERMINAL R IN V1/V2, 40+ ms S IN I/aVL/V4/V5/V6] NONSPECIFIC ST & T-WAVE ABNORMALITY ABNORMAL RHYTHM ECG Compared to ECG 09/02/2021 12:51:53 T-wave abnormality now present Electronically Signed On 11-01-2022 15:56:45 STITCH MARKER by Miguel Gonzalez M.D. [email or web address]
[2022-11-01] MEDS: apixaban 5 mg Tablet PO (16:59)
[2022-11-01] MEDS: buPROPion SR (12 HR) 150 mg Tablet PO (16:59)
[2022-11-01] MEDS: pantoprazole DR 40 mg Tablet PO (16:59)
[2022-11-01] MEDS: famotidine 20 mg Tablet PO (16:59)
[2022-11-01] MEDS: metoprolol tartrate 50 mg Tablet 100 MG PO (16:59)
[2022-11-01 20:18] LABS: Influenza A by IFA Negative (Negative); Influenza B by IFA Positive (Negative)
[2022-11-01] MEDS: oseltamivir phosphate 75 mg Capsule PO (21:16)
--- NOTE | 2022-11-01 21:49 | PC.NURSE ---
NO received and noted for Tamiflu q12h. Pt informed of new medication orders and of being positive for influenza B.
[2022-11-02] MEDS: sodium chloride 0.9% 1,000 ML 75 ML IV (02:24)
[2022-11-02 03:11] VITALS: BP 100/50; PULSE 100; RESP 18; TEMP 36.6; O2SAT 93
[2022-11-02] MEDS: lisinopril 20 mg Tablet PO (05:03)
[2022-11-02 07:04] LABS: Basophils % 0.2 %; Hematocrit 35.4 % (37.0-47.0); Hemoglobin 11.6 g/dL (11.5-15.3); Lymphocytes # 1.1 10^3/uL (0.8-4.8); Lymphocytes % 8.3 %; Mean Corpuscular HGB Conc 32.8 g/dL (30.0-36.0); Mean Corpuscular Hemoglobin 35.4 pg (28.0-34.0); Mean Corpuscular Volume 107.9 fl (81-99); Mean Platelet Volume 11.2 fL (7.4-10.4); Monocytes # 1.2 10^3/uL (0.2-0.9); Neutrophils % 82.1 %; Nucleated Red Blood Cells % 0 %; Platelet Count 167 10^3/cmm (130-400); Red Blood Count 3.28 10^6/uL (4.1-5.3); Red Cell Distribution Width 13.6 % (12.1-15.1); White Blood Count 13.4 10^3/uL (4.0-10.0)
[2022-11-02 07:15] LABS: Alanine Aminotransferase 13 U/L (0-33); Albumin Level 3.2 g/dL (3.5-5.2); Alkaline Phosphatase 61 U/L (35-105); Blood Urea Nitrogen 20 mg/dL (8-23); Calcium 8.1 mg/dL (8.5-10.5); Carbon Dioxide 22 mmol/L (22-29); Chloride 105 mmol/L (98-107); Creatinine Clr Calc Pharmacy 51.0939; Globulin 2.2 g/dL (1.3-4.6); Glucose 98 mg/dL (65-115); Magnesium 1.7 mg/dL (1.7-2.3); Osmolality Calculated 289 mOsm/kg (285-295); Sodium 138 mmol/L (136-145); Total Bilirubin 0.8 mg/dL (0.15-1.2); Total Protein 5.4 g/dL (6.6-8.7)
[2022-11-02 07:21] LABS: Anion Gap 15.3 (5-19); Aspartate Amino Transferase 17 U/L (0-32)
[2022-11-02 07:22] LABS: Potassium 4.3 mmol/L (3.5-5.1)
--- NOTE | 2022-11-02 07:59 | PC.NURSE ---
Bedside report given by Anika Can RN
[2022-11-02] MEDS: levofloxacin-dextrose 5 % 750 MG/150 ML PREMIX 100 MG IV (08:12)
--- NOTE | 2022-11-02 08:49 | PM.DCS ---
Discharge Providers Date of Admission: 11/01/22 14:52 Date of Discharge: November 02, 2022 Attending Provider at Admission: Kathy Beatty MD Attending Provider at Discharge: Kathy Beatty MD Primary Care Provider: TANK Jefferson Diagnoses at Discharge Discharge Diagnosis (1) HTN (hypertension): Status: Acute (2) Pneumonia: Status: Acute (3) Osteoporosis: Status: Acute (4) Anxiety: Status: Acute (5) Atrial fibrillation: Status: Acute (6) Postmenopausal: Status: Acute (7) Aortic stenosis: Status: Acute Qualifiers: Cardiac valve disease etiology: nonrheumatic Qualified Code(s): I35.0 - Nonrheumatic aortic (valve) stenosis (8) Dyspnea on exertion: Status: Acute (9) Smoker: Status: Acute (10) Crohn disease: Status: Chronic Qualifiers: Digestive disease complication type: without complication Gastrointestinal tract location: small and large intestine Qualified Code(s): K50.80 - Crohn's disease of both small and large intestine without complications Permanent problem details: On azathioprine (11) GERD (gastroesophageal reflux disease): Status: Chronic Qualifiers: Esophagitis presence: esophagitis presence not specified Qualified Code(s): K21.9 - Gastro-esophageal reflux disease without esophagitis (12) HTN (hypertension): Status: Chronic Qualifiers: Hypertension type: essential hypertension Qualified Code(s): I10 - Essential (primary) hypertension Reason for Visit Reason for Visit: SOB, N/V Brief History: Milagros Champagne is a 72 year old female with past medical history of atrial fibrillation, hypertension, Crohn's disease, vapes daily, severe GERD, history of aspiration pneumonia presented to the hospital via EMS today for shortness of breath and coughing.? She states she ate hot chips and she has severe GERD.? She believes she may have aspirated.? She came to the hospital and says the ER doctor told her x-ray did not show aspiration however does show a pneumonia.? She says that her nebulizer is broken so she could not take a breathing treatment at home.? She became more more short of breath started coughing.? Not on any oxygen at home and denies having a fever. ED course: She was given Levaquin x1.? Chest x-ray shows r dense consolidation in mid and right lung concerning for pneumonia.? WBC count 11.3, hemoglobin 13.? Gas shows 7.47/39.7/79.2. Hospital Course Hospital Course Admitted for pneumonia. Diagnosed with being fluid positive. Placed on Tamiflu. Discharged home on Levaquin x7 days and Tamiflu. Off oxygen now and on room air. Home oxygen evaluation did not qualify for oxygen. Patient would like to go home and states she is back to baseline. Will discharge home in stable condition. Physical Exam Narrative: Sitting up on edge of bed eating breakfast. On room air. Normocephalic atraumatic Lungs clear to auscultation bilaterally Abdomen soft nontender Normal S1-S2, no gross apparent murmurs noted Extremities no cyanosis or edema noted. Visible skin intact. Discharge Data Studies Completed and Pending Completed Studies During Hospitalization Category Date Time Status XR chest 1V portable [id number] Stat Exams 11/01/22 06:24 Completed Pending at discharge Category Date Time Status Blood Culture Stat Lab 11/01/22 07:34 Results COVID OZH [Coronavirus PCR] Routine Lab 11/01/22 17:15 Received Sputum Culture and Gram Stain Stat Lab 11/01/22 09:54 Results Radiology Impressions Chest X-Ray 11/01/22 06:24 IMPRESSION: Dense consolidation in the mid and lower right lung concerning for pneumonia. Laboratory Results WBC 13.4 10^3/uL (4.0-10.0) H 11/02/22 06:34 RBC 3.28 10^6/uL (4.1-5.3) L 11/02/22 06:34 Hgb 11.6 g/dL (11.5-15.3) 11/02/22 06:34 Hct 35.4 % (37.0-47.0) L 11/02/22 06:34 MCV 107.9 fl (81-99) H 11/02/22 06:34 MCH 35.4 pg (28.0-34.0) H 11/02/22 06:34 MCHC 32.8 g/dL (30.0-36.0) 11/02/22 06:34 RDW 13.6 % (12.1-15.1) 11/02/22 06:34 Plt Count 167 10^3/cmm (130-400) 11/02/22 06:34 MPV 11.2 fL (7.4-10.4) H 11/02/22 06:34 Neut % (Auto) 82.1 % 11/02/22 06:34 Lymph % (Auto) 8.3 % 11/02/22 06:34 Milam % (Auto) 9.0 % 11/02/22 06:34 Eos % (Auto) 0.0 % 11/02/22 06:34 Baso % (Auto) 0.2 % 11/02/22 06:34 Neut # (Auto) 11.00 10^3/uL (1.8-7.7) H 11/02/22 06:34 Lymph # (Auto) 1.1 10^3/uL (0.8-4.8) 11/02/22 06:34 Milam # (Auto) 1.2 10^3/uL (0.2-0.9) H 11/02/22 06:34 Eos # (Auto) 0.0 10^3/uL (0.0-0.8) 11/02/22 06:34 Baso # (Auto) 0.0 10^3/uL (0.0-0.1) 11/02/22 06:34 Nucleated RBC % (auto) 0 % 11/02/22 06:34 Nucleated RBCs # 0.0 /100WBC 11/02/22 06:34 Specimen Type Arterial 11/01/22 08:21 Sample Site Radial, right 11/01/22 08:21 ABG pH 7.47 (7.35-7.45) H 11/01/22 08:21 ABG pCO2 39.7 mmHg (35-45) 11/01/22 08:21 ABG pO2 79.2 mmHg (80.0-100.0) L 11/01/22 08:21 ABG HCO3 28.5 mmol/L (22-26) H 11/01/22 08:21 ABG O2 Saturation 95.3 11/01/22 08:21 ABG Base Excess 4.5 mmol/L (-2.0-2.0) H 11/01/22 08:21 Jesus Test Pos 11/01/22 08:21 A-a O2 Gradient 2.6 mmHg (5-10) L 11/01/22 08:21 Hematocrit 40.9 % (37-47) 11/01/22 08:21 Hgb O2 Saturation 94.0 % (95-100) L 11/01/22 08:21 Carboxyhemoglobin 0.3 %THgb (0.4-20.1) L 11/01/22 08:21 Methemoglobin 0.9 % (0.4-1.5) 11/01/22 08:21 Total Hemoglobin 13.3 g/dL (12-16) 11/01/22 08:21 Sodium 138.0 mmol/L (131-143) 11/01/22 08:21 Potassium 3.8 mmol/L (3.5-5.0) 11/01/22 08:21 Glucose 110.0 mg/dL (70-115) 11/01/22 08:21 Ionized Calcium 1.2 mmol/L (1.1-1.4) 11/01/22 08:21 O2 Delivery Device Nc 11/01/22 08:21 O2 Liters/Min 3.0 % 11/01/22 08:21 Religious Ritual Slaughterer ID [place] 11/01/22 08:21 Sodium 138 mmol/L (136-145) 11/02/22 06:34 Potassium 4.3 mmol/L (3.5-5.1) 11/02/22 06:34 Chloride 105 mmol/L (98-107) 11/02/22 06:34 Carbon Dioxide 22 mmol/L (22-29) 11/02/22 06:34 Anion Gap 15.3 (5-19) 11/02/22 06:34 BUN 20 mg/dL (8-23) 11/02/22 06:34 Creatinine 1.0 mg/dL (0.5-0.9) H 11/02/22 06:34 GFR Calculation Not Reportable 11/02/22 06:34 Glucose 98 mg/dL (65-115) 11/02/22 06:34 Calculated Osmolality 289 mOsm/kg (285-295) 11/02/22 06:34 Lactic Acid 1.4 mmol/L (0.5-2.2) 11/01/22 09:30 Calcium 8.1 mg/dL (8.5-10.5) L 11/02/22 06:34 Magnesium 1.7 mg/dL (1.7-2.3) 11/02/22 06:34 Total Bilirubin 0.8 mg/dL (0.15-1.2) 11/02/22 06:34 AST 17 U/L (0-32) 11/02/22 06:34 ALT 13 U/L (0-33) 11/02/22 06:34 Alkaline Phosphatase 61 U/L (35-105) 11/02/22 06:34 Total Protein 5.4 g/dL (6.6-8.7) L 11/02/22 06:34 Albumin 3.2 g/dL (3.5-5.2) L 11/02/22 06:34 Globulin 2.2 g/dL (1.3-4.6) 11/02/22 06:34 Procalcitonin 0.17 ng/mL (0-0.5) 11/01/22 07:00 Urine Color Straw (Yellow) 11/01/22 06:25 Urine Appearance Clear (CLEAR) 11/01/22 06:25 Urine pH 7 (5-7) 11/01/22 06:25 Ur Specific [place] 1.005 (1.005-1.030) 11/01/22 06:25 Urine Protein Neg (Negative) 11/01/22 06:25 Urine Glucose (UA) Norm (Normal) 11/01/22 06:25 Urine Ketones Negative (Negative) 11/01/22 06:25 Urine Blood Neg (Negative) 11/01/22 06:25 Urine Nitrate Negative (Negative) 11/01/22 06:25 Urine Bilirubin Neg (Negative) 11/01/22 06:25 Urine Urobilinogen Norm mg/dL (Negative) 11/01/22 06:25 Ur Leukocyte Esterase Negative (Negative) 11/01/22 06:25 Influenza Type A Ag Negative (Negative) 11/01/22 13:08 Influenza Type B Ag Positive (Negative) H 11/01/22 13:08 Vitals Last Vital Signs Temp 97.9 F 11/02/22 03:11 Pulse 100 11/02/22 03:11 Resp 18 11/02/22 03:11 BP 100/50 11/02/22 03:11 Pulse Ox 93 11/02/22 03:11 O2 Del Method 11/02/22 03:11 O2 Flow Rate 2 11/01/22 17:55 Discharge Plan Discharge Patient Disposition: Home Condition: Stable Prescriptions: New oseltamivir 75 mg Capsule 75 mg PO Q12H 4 Days Qty: 8 0RF levofloxacin 750 mg tablet 750 mg PO DAILY 7 Days Qty: 7 0RF Continued pantoprazole 40 mg tablet,delayed release (DR/EC) 40 mg PO DAILY famotidine [Pepcid AC] 20 mg tablet 20 mg PO DAILY cholecalciferol (vitamin D3) 10 mcg (400 unit) capsule 10 mcg PO DAILY furosemide 20 mg tablet 20 mg PO DAILY PRN (Reason: edema) potassium chloride 10 mEq tablet extended release 10 meq PO DAILY PRN (Reason: WITH LASIX) bupropion HCl [Wellbutrin SR] 150 mg tablet sustained-release 12 hr 150 mg PO BID promethazine 25 mg tablet 25 mg PO Q6H PRN (Reason: Nausea) meclizine 25 mg tablet 25 mg PO TID PRN (Reason: Dizziness) alprazolam [Xanax] 0.5 mg tablet 0.5 mg PO BID PRN (Reason: Anxiety) ascorbic acid (vitamin C) 1,000 mg tablet 500 mg PO DAILY azathioprine 50 mg tablet 50 mg PO DAILY metoprolol tartrate 100 mg tablet 100 mg PO BID Qty: 180 3RF lisinopril 20 mg tablet 20 mg PO QAM Qty: 90 3RF multivitamin Tablet 1 tab PO DAILY mupirocin 2 % ointment 1 applic topical BID PRN (Reason: Rash) Spiriva with HandiHaler 18 mcg capsule, w/inhalation device 1 cap inhalation DAILY Qty: 90 1RF Rx Instructions: puncture 1 cap using device; one dose = 2 inhalations simvastatin 5 mg tablet 5 mg PO DAILY Qty: 90 3RF alendronate 70 mg tablet See Rx Instructions .ROUTE .COMPLEX Qty: 4 0RF Dose Instruction: TAKE ONE TABLET BY MOUTH EVERY 7 DAYS Rx Instructions: TAKE ONE TABLET BY MOUTH EVERY 7 DAYS ON MONDAYS cyanocobalamin (vitamin B-12) [Vitamin B-12] 1,000 mcg Tablet 1,000 mcg PO DAILY albuterol sulfate [Ventolin HFA] 90 mcg/actuation Hfa Aerosol Inhaler 2 puff inhalation Q6H PRN (Reason: Shortness Of Breath) Qty: 18 0RF Lactobacillus acidoph-L.bulgar [Floranex] 1 million cell Tablet 1 tab PO BID Qty: 60 0RF Eliquis 5 mg tablet 5 mg PO BID Discharge Orders: Discharge Order (Routine); Ordered 11/02/22 Ordered By: Kathy Beatty Referrals: Milagros Myers FNP [Primary Care Provider] - 11/09/22 10:20 am Discharge Diet: Cardiac Discharge Activity: Resume usual activity Patient Instructions: Levofloxacin (By mouth), Oseltamivir (By mouth) Discharge Attestations Time Spent in Discharge Care*: less than 30 min Quality Metrics Clinical Quality Measures [ No reported AMI, CVA or VTE this stay] Coding Level of Care Code Acute [facility] note Diagnoses HTN (hypertension) I10 Pneumonia J18.9 Osteoporosis M81.0 Anxiety F41.9 Atrial fibrillation I48.91 Postmenopausal Z78.0 Aortic stenosis I35.0 Cardiac valve disease etiology: nonrheumatic Dyspnea on exertion R06.00 Smoker F17.200 Crohn disease K50.80 Digestive disease complication type: without complication Gastrointestinal tract location: small and large intestine GERD (gastroesophageal reflux disease) K21.9 Esophagitis presence: esophagitis presence not specified HTN (hypertension) I10 Hypertension type: essential hypertension
[2022-11-02] MEDS: pantoprazole DR 40 mg Tablet PO (08:51)
[2022-11-02] MEDS: famotidine 20 mg Tablet PO (08:51)
[2022-11-02] MEDS: metoprolol tartrate 50 mg Tablet 100 MG PO (08:51)
[2022-11-02] MEDS: buPROPion SR (12 HR) 150 mg Tablet PO (08:51)
[2022-11-02] MEDS: oseltamivir phosphate 75 mg Capsule PO (08:51)
[2022-11-02] MEDS: apixaban 5 mg Tablet PO (08:52)
[2022-11-02 08:59] VITALS: BP 112/52; PULSE 91; RESP 16; TEMP 36.7; O2SAT 98
[2022-11-02 09:00] VITALS: PULSE 90; RESP 16; O2SAT 97
[2022-11-02 09:25] VITALS: O2SAT 95; O2SAT 97
[2022-11-02] MEDS: ipratropium-albuterol 3 mL Neb INHALATION (09:28)
[2022-11-02 12:33] VITALS: BP 114/59; PULSE 92; RESP 16; TEMP 37.1; O2SAT 99
[2022-11-02 12:52] VITALS: BP 114/59; PULSE 92; RESP 16; TEMP 37.1; O2SAT 99
== END 2022-11-02 12:25 | disposition home or self-care (01) | DRG 194 ==
LOC: ER 11:16 → MEDSURG 13:24
PROVIDERS: Admitting Provider Internal Medicine; Emergency Provider Family Medicine; PCP Nurse Practitioner Family; Visit Provider Internal Medicine
DX: J10.1 Influenza due to other identified influenza virus with other respiratory manifestations (principal); K50.80 Crohn's disease of both small and large intestine without complications; J69.0 Pneumonitis due to inhalation of food and vomit; I10 Essential (primary) hypertension; M81.0 Age-related osteoporosis without current pathological fracture; F41.9 Anxiety disorder, unspecified; I48.91 Unspecified atrial fibrillation; I35.0 Nonrheumatic aortic (valve) stenosis; F17.290 Nicotine dependence, other tobacco product, uncomplicated; K21.9 Gastro-esophageal reflux disease without esophagitis; Z79.51 Long term (current) use of inhaled steroids; Z79.01 Long term (current) use of anticoagulants; Z90.49 Acquired absence of other specified parts of digestive tract
CPT/HCPCS: 36415; 36600; 71045; 80051; 80053; 81003; 82330; 82805; 83605; 83735; 84145; 85025; 86403; 87040; 87070; 87077; 87186; 87205; 87449; 87635; 87804; 93005; 94640; 94664; 94760; 96365; 96375; 99285; J1956; J2930; J7030

== ENCOUNTER → 2023-03-31 10:02 | Outpatient (BNVA) | payer MEDICARE, BC, SELFPAY | PROVIDERS: PCP Nurse Practitioner Family; Visit Provider Nurse Practitioner Family | DX: I10 Essential (primary) hypertension (principal); E55.9 Vitamin D deficiency, unspecified; M81.0 Age-related osteoporosis without current pathological fracture; F41.9 Anxiety disorder, unspecified; I48.91 Unspecified atrial fibrillation; K50.80 Crohn's disease of both small and large intestine without complications; E53.8 Deficiency of other specified B group vitamins | CPT/HCPCS: 80053; 80061; 82306; 82607; 83735; 84443; 85025 ==

== ENCOUNTER → 2023-06-28 10:57 | Outpatient (BNVA) | payer MEDICARE, BC, SELFPAY | PROVIDERS: PCP Nurse Practitioner Family; Visit Provider Internal Medicine Cardiovascular Disease | DX: I48.91 Unspecified atrial fibrillation (principal); I10 Essential (primary) hypertension; I25.10 Atherosclerotic heart disease of native coronary artery without angina pectoris; R94.39 Abnormal result of other cardiovascular function study; I77.9 Disorder of arteries and arterioles, unspecified; K21.9 Gastro-esophageal reflux disease without esophagitis; F17.290 Nicotine dependence, other tobacco product, uncomplicated | CPT/HCPCS: 99214 ==

== ENCOUNTER → 2023-07-25 10:15 | Outpatient (BNVA) | payer MEDICARE, BC, SELFPAY | PROVIDERS: PCP Nurse Practitioner Family; Visit Provider Internal Medicine Pulmonary Disease | DX: J18.9 Pneumonia, unspecified organism (principal) | CPT/HCPCS: 71046 ==

== ENCOUNTER 2023-08-09 13:59 | Outpatient (CLI) | payer MEDICARE, BC, SELFPAY ==
--- NOTE | 2023-08-09 14:04 | CT_ITS ---
WS: [id number] LDCT LUNG CANCER SCREENING HISTORY: F17.210 - Nicotine dependence, cigarettes, uncomplicated TECHNIQUE: Axial imaging performed from the apices to 1 cm below the costophrenic angles. Coronal and sagittal reformats are submitted with axial MIP series. All CT scans at [facility] use at least one of these dose optimization techniques: automated exposure control; mA and/or kV adjustment per patient size (includes targeted exams where dose is matched to clinical indication); or iterativ e reconstruction. DLP: 51.09 mGy.cm DIvol: Mean CTDIvol: 0.90 (mGy) COMPARISON: 09/15/2022 Diagnostic quality: Satisfactory Lungs: Hyperexpanded lungs with emphysema. There are few areas of linear scarring in the lingula and RIGHT middle lobe. Benign calcification along the minor fissure. There are few scattered microcalcifi cations. No mass or nodule. No endobronchial lesions. Heart: Moderate cardiomegaly. No pericardial effusion. Advanced coronary artery calcifications. Large st burden in the LEFT anterior descending.. Other findings: No significant adenopathy. Atherosclerotic changes within the aorta. Small hiatal her cecile. No adrenal mass. Small cortical bulge from the posterior LEFT kidney. Noted to be a cyst on a pr ior study from 2020. Thoracic scoliosis. IMPRESSION: CT/CT lung screening [id number] LUNG-RADS: 2-Benign Appearance or Behavior FOLLOW UP: 12 Month: Continue annual screening with LDCT OTHER FINDINGS (S MODIFIER): None.
== END 2023-08-09 14:00 | disposition home or self-care (01) ==
PROVIDERS: PCP Nurse Practitioner Family; Visit Provider Internal Medicine Pulmonary Disease
DX: Z12.2 Encounter for screening for malignant neoplasm of respiratory organs (principal); F17.210 Nicotine dependence, cigarettes, uncomplicated
CPT/HCPCS: 71271

== ENCOUNTER → 2023-11-28 09:52 | Outpatient (BNVA) | payer MEDICARE, BC, SELFPAY | PROVIDERS: PCP Nurse Practitioner Family; Visit Provider Nurse Practitioner Family | DX: Z78.0 Asymptomatic menopausal state (principal); M85.80 Other specified disorders of bone density and structure, unspecified site; I10 Essential (primary) hypertension; I48.91 Unspecified atrial fibrillation; M81.0 Age-related osteoporosis without current pathological fracture; K21.9 Gastro-esophageal reflux disease without esophagitis; K50.80 Crohn's disease of both small and large intestine without complications; Z12.31 Encounter for screening mammogram for malignant neoplasm of breast; Z79.899 Other long term (current) drug therapy | CPT/HCPCS: 80053; 80061; 84443; 85025 ==

== ENCOUNTER 2023-12-04 14:04 | Outpatient (CLI) | payer MEDICARE, BC, SELFPAY ==
--- NOTE | 2023-12-04 14:30 | MM_ITS ---
WS: [email or web address] BILATERAL 3D TOMOSYNTHESIS DIGITAL SCREENING MAMMOGRAPHY WITH CAD CLINICAL INFORMATION: Z12.39 - Encounter for other screening for malignant neop... HISTORY: Screening mammogram. No current complaints. COMPARISON: 2021 TECHNIQUE: Bilateral CC and MLO views. FINDINGS: Scattered fibroglandular densities bilaterally. No suspicious focal mass, asymmetry, calcifications, or architectural distortion. No evidence of malignancy. IMPRESSION: MM/[place] [id number] BI-RADS: 1-Negative FOLLOW UP: 1 Year Follow-up Recommend return to annual screening mammography.
--- NOTE | 2023-12-04 15:00 | XR_ITS ---
WS: [email or web address] SCREENING DEXA SCAN [facility] CLINICAL INFORMATION: M85.80 - Other specified disorders of bone density and st... COMPARISON: 2021 FINDINGS: The L1-L4 bone mineral density measures 0.99. This corresponds to a T score score of -1.7 and Z score of -0.2. Left femoral neck bone mineral density measures 0.714 g/cm2. This corresponds to a T score of -2.3 an d Z score of -0.9. Right femoral neck bone mineral density measures 0.662 g/cm2. This corresponds to a T score -2.7of an d Z score of -1.3. Mean femoral neck bone mineral density measures 0.688 g/cm2. This corresponds to a T score of -2.5 an d Z score of -1.1. IMPRESSION: Osteopenia lumbar spine. Osteoporosis femoral necks. Patient's FRAX calculated 10 year probability for major osteoporotic fracture is 27.0% and osteoporot ic hip fracture is 11.6%. Bone mineral density lumbar spine increased 4.0% Bone mineral density femoral necks increased 0.4%
== END 2023-12-04 14:05 | disposition home or self-care (01) ==
LOC: RAD 14:05
PROVIDERS: PCP Nurse Practitioner Family; Visit Provider Nurse Practitioner Family
DX: Z12.31 Encounter for screening mammogram for malignant neoplasm of breast (principal); R92.323 Mammographic fibroglandular density, bilateral breasts; Z13.820 Encounter for screening for osteoporosis; M85.88 Other specified disorders of bone density and structure, other site; M81.0 Age-related osteoporosis without current pathological fracture
CPT/HCPCS: 77063; 77067; 77080

== ENCOUNTER → 2024-06-18 14:32 | Outpatient (BNVA) | payer MEDICARE, BC, SELFPAY | PROVIDERS: PCP Nurse Practitioner Family; Visit Provider Nurse Practitioner Family | DX: I10 Essential (primary) hypertension (principal); E55.9 Vitamin D deficiency, unspecified | CPT/HCPCS: 80053; 80061; 82306; 82607; 84443; 85025 ==

== ENCOUNTER → 2024-07-03 13:43 | Outpatient (BNVA) | payer MEDICARE, BC, SELFPAY | PROVIDERS: PCP Nurse Practitioner Family; Visit Provider Internal Medicine Cardiovascular Disease | DX: I48.91 Unspecified atrial fibrillation (principal); I10 Essential (primary) hypertension; I35.0 Nonrheumatic aortic (valve) stenosis; E78.2 Mixed hyperlipidemia; R94.39 Abnormal result of other cardiovascular function study; F17.200 Nicotine dependence, unspecified, uncomplicated | CPT/HCPCS: 99214 ==

== ENCOUNTER → 2024-12-31 15:45 | Outpatient (BNVA) | payer MEDICARE, BC, SELFPAY | PROVIDERS: PCP Nurse Practitioner Family; Visit Provider Nurse Practitioner Family | DX: I10 Essential (primary) hypertension (principal); M81.0 Age-related osteoporosis without current pathological fracture | CPT/HCPCS: 80053; 80061; 82306; 82607; 83735; 84443; 85025 ==

== ENCOUNTER → 2025-01-02 15:11 | Outpatient (BNVA) | payer MEDICARE, BC, SELFPAY | PROVIDERS: PCP Nurse Practitioner Family; Visit Provider Internal Medicine Cardiovascular Disease | DX: R07.9 Chest pain, unspecified (principal); I48.91 Unspecified atrial fibrillation; Q24.8 Other specified congenital malformations of heart; I45.19 Other right bundle-branch block; I37.8 Other nonrheumatic pulmonary valve disorders; I51.7 Cardiomegaly | CPT/HCPCS: 36415; 83880; 93005; 99214 ==

== ENCOUNTER → 2025-01-20 10:13 | Outpatient (BNVA) | payer MEDICARE, BC, SELFPAY | PROVIDERS: PCP Nurse Practitioner Family; Visit Provider Internal Medicine Cardiovascular Disease | DX: R06.00 Dyspnea, unspecified (principal) | CPT/HCPCS: 80048; 83880 ==

== ENCOUNTER 2025-02-06 11:36 | Outpatient (CLI) | payer MEDICARE, BC, SELFPAY ==
--- NOTE | 2025-02-06 12:00 | USCV_ITS ---
Milagros Champagne Age: 74 Gender: F : 1950 Exam Date: 02/06/2025 11:43 Ordering Phys: Kortney Hess MD ([email or web address]) Technologist: [place] [facility] [place]: BP: 120 / 70 HR: 77 Rhythm: Sinus Technical Quality: Adequate MEASUREMENTS (Male / Female) Normal Values 2D ECHO LV Diastolic Diameter PLAX 4.8 cm 4.2 - 5.9 / 3.9 - 5.3 cm IVS Diastolic Thickness 1.0 cm 0.6 - 1.0 / 0.6 - 0.9 cm IVS Systolic Thickness 1.7 cm LVPW Diastolic Thickness 1.5 cm 0.6 - 1.0 / 0.6 - 0.9 cm LVPW Systolic Thickness 1.6 cm LVOT Diameter 2.1 cm LV Ejection Fraction 2D Teich 63.4 % LV Ejection Fraction MOD 4C 70.9 % LV Ejection Fraction MOD 2C 77.6 % LV Ejection Fraction 2C AL 78.3 % LA Diameter 4.9 cm RA Systolic Volume 4C AL 62.9 ml RA Systolic Volume 4C MOD 61.4 ml Aorta at Sinotubular Diameter 2.8 cm M-MODE LA Ao Ratio MM 1.6 AV Cusp Separation MM 1.8 cm DOPPLER MV Peak Velocity 126.0 cm/s MV Area PHT 4.0 cm squared Mitral E to A Ratio 1.6 TV Peak Velocity 280.0 cm/s TR Peak Velocity 361.0 cm/s TR Peak Gradient 52.1 mmHg TV Peak E Velocity 89.0 cm/s PV Peak Velocity 101.0 cm/s FINDINGS Left Ventricle Normal left ventricular size and systolic function, EF 71%. Mild left ventricular hypertrophy. No regional wall motion abnormalities. Right Ventricle The right ventricle is normal in size and function. Right Atrium mildly increased right atrial size. Left Atrium Mildly increased left atrial size. Mitral Valve Mild mitral annular calcification. Mild mitral valve regurgitation. Aortic Valve Thickened aortic valve. Mild to moderate aortic valve calcification. Tricuspid Valve Mild tricuspid valve regurgitation. Estimated pulmonary artery peak systolic pressure 55 mm Hg. Mild pulmonary hypertension Pulmonic Valve Mild pulmonary valve regurgitation. Pericardium No pericardial effusion. Aorta Normal aortic annulus size. IVC Inferior vena cava not visualized. CONCLUSIONS Normal left ventricular size and systolic function, EF 71%. Mild left ventricular hypertrophy. No regional wall motion abnormalities. Mild biatrial enlargement Mild mitral annular calcification. Mild mitral valve regurgitation. Thickened aortic valve. Mild to moderate aortic valve calcification. Mild tricuspid valve regurgitation. Mild pulmonary hypertension. Estimated pulmonary artery peak systolic pressure 55 mm Hg. Mild pulmonary valve regurgitation. There is no pericardial effusion. There are no intracardiac masses. Compared to the study from 09/02/2021, there may not be a significant change Dr Kortney Hess MD [facility] (Electronically Signed) Final Date: 09 February 2025 21:56 S
== END 2025-02-06 11:37 | disposition home or self-care (01) ==
LOC: RAD 11:37
PROVIDERS: PCP Nurse Practitioner Family; Visit Provider Internal Medicine Cardiovascular Disease
DX: R06.09 Other forms of dyspnea (principal); I34.81 Nonrheumatic mitral (valve) annulus calcification; I34.0 Nonrheumatic mitral (valve) insufficiency; I35.8 Other nonrheumatic aortic valve disorders; I07.1 Rheumatic tricuspid insufficiency; I27.20 Pulmonary hypertension, unspecified; I37.1 Nonrheumatic pulmonary valve insufficiency
CPT/HCPCS: 93306

== ENCOUNTER 2025-02-20 21:59 | Emergency (ER) | payer MEDICARE, BC, SELFPAY ==
[2025-02-20 22:00] VITALS: BP 148/104; PULSE 94; RESP 18; TEMP 37.3; O2SAT 94; BMI 28.6
--- NOTE | 2025-02-20 22:24 | XRR_ITS ---
PROCEDURE INFORMATION: Exam: XR Chest Exam date and time: 02/20/2025 10:26 PM Age: 74 years old Clinical indication: Pain; Chest pressure; Additional info: Chest pain TECHNIQUE: Imaging protocol: Radiologic exam of the chest. Views: 1 view. COMPARISON: CT lung screening [id number] 08/09/2023 2:14 PM FINDINGS: Lungs: Right lower lobe pneumonia. Right midlung calcified granuloma. Emphysematous changes. Pleural spaces: Unremarkable. No pleural effusion. No pneumothorax. Heart/Mediastinum: Cardiomegaly. Vasculature: Aortic atherosclerotic calcifications. Bones/joints: Unremarkable. XR/XR chest 1V portable [id number] IMPRESSION: 1. Right lower lobe pneumonia. 2. Cardiomegaly. 3. Aortic atherosclerotic calcifications. 4. Right midlung calcified granuloma. 5. Emphysematous changes.
--- NOTE | 2025-02-20 22:26 | ED_ITS ---
HPI - Nausea/Vomiting/Diarrhea 2 General: Chief complaint: Nausea/Vomiting/Diarrhea Stated complaint: N/V Time Seen by Provider: 02/20/25 22:11 History of Present Illness: Patient presents emerged part with complaint of acid reflux. She states she has a history of bad acid reflux and Crohn's disease and because of this has had multiple surgeries and has bad reflux and states that she will often vomit up and then aspirated. She states that today around 730 of the night she started to have bad reflux and could feel it come up into the back of her throat. She does not feel like she is aspirated. She does not have any shortness of breath but she does states that she just has started this diffuse chest pain and upper abdominal pain radiates around to the back. Denies any pleuritic chest pain. Related Data Home Medications ?Medication ?Instructions ?Recorded ?Confirmed cyanocobalamin (vitamin B-12) 1,000 mcg PO DAILY 02/2301/08/25 1,000 mcg tablet (Vitamin B-12) cholecalciferol (vitamin D3) 10 10 mcg PO DAILY 01/08/25 mcg (400 unit) capsule ascorbic acid (vitamin C) 1,000 mg 500 mg PO DAILY 03/0501/08/25 tablet multivitamin 1 tab PO DAILY 09/29/2212/15 Previous Rx's ?Medication ?Instructions ?Recorded albuterol sulfate 90 mcg/actuation 2 puff inhalation Q 6H PRN 02/26/20 aerosol inhaler (Ventolin HFA) Shortness Of Breath #18 grams albuterol sulfate 2.5 mg/3 mL 2.5 mg (3 mL) inhalation QID PRN 11/11/22 (0.083 %) solution for nebulization shortness of breat h or wheezing #180 mL apixaban 5 mg tablet (Eliquis) See Rx Instructions .Ro ronaldo 12/03/24 .COMPLEX #180 tabs azathioprine 50 mg tablet See Rx Instructions .Route 0 12/03/24 .COMPLEX #90 tabs bupropion HCl 150 mg tablet,12 hr See Rx Instructions .Route 12/03/24 sustained-release .COMPLEX #180 tabs lisinopril 20 mg tablet See Rx Instructions .Route 0 12/03/24 .COMPLEX #90 tabs pantoprazole 40 mg tablet,delayed See Rx Instructions .Route 12/03/24 release .COMPLEX #90 tabs simvastatin 5 mg tablet See Rx Instructions .Route 0 12/03/24 .COMPLEX #90 tabs alendronate 70 mg tablet See Rx Instructions .Route 0 12/31/24 .COMPLEX #12 tabs metoprolol tartrate 100 mg tablet See Rx Instructions .Route 12/31/24 .COMPLEX #180 tabs tiotropium bromide 18 mcg capsule See Rx Instructions .Route 12/31/24 with inhalation device (Spiriva .COMPLEX #180 caps with HandiHaler) tramadol 50 mg tablet 50 mg PO TID PRN pain #30 ta bs 12/31/24 trazodone 50 mg tablet 50 mg PO .qhs #90 tabs 12/31 furosemide 20 mg tablet 20 mg PO DAILY #90 tabs 01/14 potassium chloride 8 mEq 8 meq PO DAILY #90 caps 01/14 capsule,extended release levofloxacin 750 mg tablet 750 mg PO DAILY 7 days #7 t abs 02/21/25 Allergies Allergy/AdvReac Type Severity Reaction Status Date / Time codeine Allergy Unknown Verified 01/08/25 14:20 erythromycin base Allergy Unknown Verified 01/08/25 14:20 Penicillins Allergy Unknown Verified 01/08/25 14:20 PFSH ED 2 PFSH: Medical History Dyspnea on exertion Enrolled in chronic care management Crohn disease On azathioprine GERD (gastroesophageal reflux disease) Syncope Has been a recurrent problem, though now associated with dizziness but no further actual loss of consciousness, follows with Dr. Manning. Etiology not clear. HTN (hypertension) Surgical History History of cholecystectomy History of appendectomy History of hysterectomy History of bowel resection large and small bowel, 6 different ORs, no colostomy, some dumping syndrome Family History Other Atrial fibrillation Stroke Social History Smoking and tobacco/nicotine status: current every day tobacco/nicotine user (Vaping) e-cigarettes E-Cigarette Details: vaporizer device E-cig/vape details: 3mg of nicotine ([id number] then switched to vape) Quit status (tobacco/nicotine): considering quitting Second hand smoke exposure: No Alcohol intake: current Alcohol intake frequency: holidays/special occasions only Alcohol type: wine Substance/Drug Use: never Lives independently: Yes Household members: spouse Marital status: Current occupational status: retired Previous occupational history: Retired nurse Pets and animals: Yes Do you think of yourself as: Straight/Heterosexual Current gender identity: Female Physical Exam 2 Const: COMMON NORMALS: no acute distress, average body habitus, patient oriented x3, no limitations, healthy appearing, alert and well nourished Neck/C-Spine: COMMON NORMALS: no JVD Resp: COMMON NORMALS: normal respiratory effort, No retractions, No use of accessory muscles, clear to auscultation bilaterally and percussion normal A USCULTATION: clear to auscultation bilaterally PERCUSSION: percussion normal Cardio: COMMON NORMALS: no JVD, regular rate, regular rhythm, S1 normal heart sound present, S2 normal heart sound present, No gallops present (Cardio), No clicks present (Cardio), No murmurs present (Cardio), No rub (Cardio) and Peripheral pulses 2+ throughout RATE: regular rate RHYTHM: regular rhythm HEART SOUNDS: S1 normal heart sound present and S2 normal heart sound present PERIPHERAL PULSES: Peripheral pulses 2+ throughout GI: COMMON NORMALS: Normal to inspection, nondistended, normoactive bowel sounds present, Soft to palpation, No hepatosplenomegaly present, no masses and no bruits PALPATION: Yes Soft to palpation and Yes No hepatosplenomegaly present OTHER: Mild epigastric tenderness Neuro: COMMON NORMALS: patient oriented x3 SENSORIUM/ORIENTATION: Yes alert Course 2 Vital Signs: Vital signs: Vital Signs Temperature 99.2 F 02/20/25 22:00 Pulse Rate 93 02/21/25 01:15 Respiratory Rate 16 02/21/25 00:15 Blood Pressure 121/73 02/21/25 00:15 Pulse Oximetry 89 L 02/21/25 01:15 Oxygen Delivery Me thod Nasal Cannula 02/21/25 00:15 Oxygen Flow Rate 2 02/21/25 00:15 MDM - Nausea/Vomiting/Diarrhea Medical Decision Making Patient presents emerged part with complaint of concern for pneumonia. She states that she aspirates frequently and she did vomit tonight into her throat and feels like that may have caused a episode of aspiration. She denies any shortness of breath. She does indeed have infiltrate noted on chest x-ray. She is requesting to be discharged home however. She does use oxygen at home. Does not appear to be septic. Discussed with patient that she should return to the ER if symptoms worsen. Patient to return if worsening shortness of breath. Patient started on Levaquin here. Lab Data 02/20/25 22:48 02/20/25 22:48 Radiology Impressions Chest X-Ray 02/20/25 22:24 IMPRESSION: 1. Right lower lobe pneumonia. 2. Cardiomegaly. 3. Aortic atherosclerotic calcifications. 4. Right midlung calcified granuloma. 5. Emphysematous changes. Laboratory Results WBC 11.69 10^3/uL (3.29-11.43) H 02/20/25 22:48 RBC 3.56 10^6/uL (3.85-5.65) L 02/20/25 22:48 Hgb 12.50 g/dL (11.27-16.99) 02/20/25 22:48 Hct 37.0 % (36-47) 02/20/25 22:48 MCV 103.9 fl (85-98) H 02/20/25 22:48 MCH 35.1 pg (27-33) H 02/20/25 22:48 MCHC 33.8 g/dL (30-55) 02/20/25 22:48 RDW 12.6 % (12.1-15.1) 02/20/25 22:48 Plt Count 212 10^3/cmm (157-399) 02/20/25 22:48 MPV 9.7 fL (7.4-10.4) 02/20/25 22:48 Neut % (Auto) 86.3 % 02/20/25 22:48 Lymph % (Auto) 7.4 % 02/20/25 22:48 Sharkey % (Auto) 5.2 % 02/20/25 22:48 Eos % (Auto) 0.5 % 02/20/25 22:48 Baso % (Auto) 0.2 % 02/20/25 22:48 Neut # (Auto) 10.08 10^3/uL (1.8-7.7) H 02/20/25 22:48 Lymph # (Auto) 0.9 10^3/uL (0.8-4.8) 02/20/25 22:48 Sharkey # (Auto) 0.6 10^3/uL (0.2-0.9) 02/20/25 22:48 Eos # (Auto) 0.1 10^3/uL (0.0-0.8) 02/20/25 22:48 Baso # (Auto) 0.0 10^3/uL (0.0-0.1) 02/20/25 22:48 Nucleated RBC % (auto) 0 % 02/20/25 22:48 Nucleated RBCs # 0.0 /100WBC 02/20/25 22:48 Sodium 139 mmol/L (136-145) 02/20/25 22:48 Potassium 4.2 mmol/L (3.5-5.1) 02/20/25 22:48 Chloride 101 mmol/L (98-107) 02/20/25 22:48 Carbon Dioxide 26 mmol/L (22-29) 02/20/25 22:48 Anion Gap 16.2 (5-19) 02/20/25 22:48 BUN 23 mg/dL (8-23) 02/20/25 22:48 Creatinine 1.2 mg/dL (0.5-0.9) H 02/20/25 22:48 GFR Calculation Not Reportable 02/20/25 22:48 Glucose 97 mg/dL (65-115) 02/20/25 22:48 Calculated Osmolality 292 mOsm/kg (285-295) 02/20/25 22:48 Calcium 9.1 mg/dL (8.5-10.5) 02/20/25 22:48 Total Bilirubin 0.6 mg/dL (0.15-1.2) 02/20/25 22:48 AST 20 U/L (0-32) 02/20/25 22:48 ALT 12 U/L (0-33) 02/20/25 22:48 Alkaline Phosphatase 87 U/L (35-105) 02/20/25 22:48 Troponin T Baseline 13 ng/L (0-10) H 02/20/25 22:48 Troponin T 120 Minute 13.99 ng/L (0-10) H 02/21/25 00:41 Delta Troponin T 0.99 ABS# (0-10) 02/21/25 00:41 Total Protein 6.5 g/dL (6.6-8.7) L 02/20/25 22:48 Albumin 4.2 g/dL (3.5-5.2) 02/20/25 22:48 Globulin 2.3 g/dL (1.3-4.6) 02/20/25 22:48 Lipase 34 U/L (13-60) 02/20/25 22:48 All radiology interpretation(s) finalized by discharge Discharge Plan Discharge Patient Disposition: Home Clinical Impression: PNA (pneumonia) Qualifiers: Pneumonia type: due to unspecified organism Laterality: right Lung location: l ower lobe of lung Qualified Code(s): J18.9 - Pneumonia, unspecified organism Condition: Stable Prescriptions: New levofloxacin 750 mg tablet 750 mg PO DAILY 7 Days Qty: 7 0RF No Action cholecalciferol (vitamin D3) 10 mcg (400 unit) capsule 10 mcg PO DAILY ascorbic acid (vitamin C) 1,000 mg tablet 500 mg PO DAILY multivitamin Tablet 1 tab PO DAILY Spiriva with HandiHaler 18 mcg capsule, w/inhalation device See Rx Instructions .ROUTE .COMPLEX Qty: 180 1RF Dose Instruction: INHALE ONE DOSE (TWO PUFFS) BY MOUTH DAILY Rx Instructions: INHALE ONE DOSE (TWO PUFFS) BY MOUTH DAILY metoprolol tartrate 100 mg tablet See Rx Instructions .ROUTE .COMPLEX Qty: 180 1RF Dose Instruction: TAKE ONE TABLET BY MOUTH TWICE DAILY Rx Instructions: TAKE ONE TABLET BY MOUTH TWICE DAILY alendronate 70 mg tablet See Rx Instructions .ROUTE .COMPLEX Qty: 12 1RF Dose Instruction: TAKE ONE TABLET BY MOUTH EVERY 7 DAYS ON Mondays Rx Instructions: TAKE ONE TABLET BY MOUTH EVERY 7 DAYS ON Mondays trazodone 50 mg tablet 50 mg PO .qhs Qty: 90 1RF tramadol 50 mg tablet 50 mg PO TID PRN (Reason: pain) Qty: 30 0RF albuterol sulfate 2.5 mg /3 mL (0.083 %) solution for nebulization 2.5 mg inhalation QID PRN (Reason: shortness of breath or wheezing) Qty: 180 2RF lisinopril 20 mg tablet See Rx Instructions .ROUTE .COMPLEX Qty: 90 1RF Dose Instruction: TAKE ONE TABLET BY MOUTH EVERY MORNING Rx Instructions: TAKE ONE TABLET BY MOUTH EVERY MORNING bupropion HCl 150 mg tablet sustained-release 12 hr See Rx Instructions .ROUTE .COMPLEX Qty: 180 1RF Dose Instruction: TAKE ONE TABLET BY MOUTH TWICE DAILY Rx Instructions: TAKE ONE TABLET BY MOUTH TWICE DAILY azathioprine 50 mg tablet See Rx Instructions .ROUTE .COMPLEX Qty: 90 1RF Dose Instruction: TAKE ONE TABLET BY MOUTH EVERY DAY FOR chrohns Rx Instructions: TAKE ONE TABLET BY MOUTH EVERY DAY FOR chrohns Eliquis 5 mg tablet See Rx Instructions .ROUTE .COMPLEX Qty: 180 1RF Dose Instruction: TAKE ONE TABLET BY MOUTH TWICE DAILY Rx Instructions: TAKE ONE TABLET BY MOUTH TWICE DAILY simvastatin 5 mg tablet See Rx Instructions .ROUTE .COMPLEX Qty: 90 1RF Dose Instruction: TAKE ONE TABLET BY MOUTH DAILY Rx Instructions: TAKE ONE TABLET BY MOUTH DAILY pantoprazole 40 mg tablet,delayed release (DR/EC) See Rx Instructions .ROUTE .COMPLEX Qty: 90 1RF Dose Instruction: TAKE ONE TABLET BY MOUTH DAILY Rx Instructions: TAKE ONE TABLET BY MOUTH DAILY potassium chloride 8 mEq capsule, extended release 8 meq PO DAILY Qty: 90 3RF furosemide 20 mg tablet 20 mg PO DAILY Qty: 90 3RF cyanocobalamin (vitamin B-12) [Vitamin B-12] 1,000 mcg Tablet 1,000 mcg PO DAILY albuterol sulfate [Ventolin HFA] 90 mcg/actuation Hfa Aerosol Inhaler 2 puff inhalation Q6H PRN (Reason: Shortness Of Breath) Qty: 18 0RF Discharge Orders: Discharge ED (Routine); Ordered 02/21/25 Ordered By: Berry Ward Referrals: Milagros Myers FNP [Primary Care Provider, Family Practice] Patient Instructions: Opioid Safety, Pain Management Print Language: Cape Verdean Coding Level of Care Code ED Mechanical Unit Repairer for Matthias Chapman
--- NOTE | 2025-02-20 22:36 | ECG_ITS ---
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 Measurements Intervals Biddle Rate: 81 P: 0 FL: 0 QRS: -52 QRSD: 108 T: 69 QT: 355 QTc: 413 Interpretive Statements ATRIAL FIBRILLATION INCOMPLETE RIGHT BUNDLE BRANCH BLOCK [90+ ms QRS DURATION, TERMINAL R IN V1/V2, 40+ ms S IN I/aVL/V4/V5/V6] LEFT ANTERIOR FASCICULAR BLOCK [QRS AXIS <= -45, QR IN I, RS IN II] MINIMAL ST DEPRESSION [0.025+ mV ST DEPRESSION] Compared to ECG 01/02/2025 15:27:26 Left anterior fascicular block now present Left-axis deviation no longer present Left ventricular hypertrophy no longer present ST (T wave) deviation still present Electronically Signed On 02-21-2025 13:34:43 CDT by Miguel Gonzalez M.D. [email or web address]
[2025-02-20 22:52] LABS: Basophils % 0.2 %; Eosinophils # 0.1 10^3/uL (0.0-0.8); Eosinophils % 0.5 %; Lymphocytes # 0.9 10^3/uL (0.8-4.8); Lymphocytes % 7.4 %; Mean Corpuscular HGB Conc 33.8 g/dL (30-55); Mean Corpuscular Hemoglobin 35.1 pg (27-33); Mean Corpuscular Volume 103.9 fl (85-98); Mean Platelet Volume 9.7 fL (7.4-10.4); Monocytes # 0.6 10^3/uL (0.2-0.9); Monocytes % 5.2 %; Neutrophils # 10.08 10^3/uL (1.8-7.7); Neutrophils % 86.3 %; Nucleated Red Blood Cells % 0 %; Platelet Count 212 10^3/cmm (157-399); Red Blood Count 3.56 10^6/uL (3.85-5.65); Red Cell Distribution Width 12.6 % (12.1-15.1); White Blood Count 11.69 10^3/uL (3.29-11.43)
[2025-02-20 23:10] VITALS: BP 133/68; PULSE 82; O2SAT 90
[2025-02-20 23:11] LABS: Troponin(5th) Baseline 13 ng/L (0-10)
[2025-02-20 23:16] LABS: Alanine Aminotransferase 12 U/L (0-33); Albumin Level 4.2 g/dL (3.5-5.2); Alkaline Phosphatase 87 U/L (35-105); Anion Gap 16.2 (5-19); Aspartate Amino Transferase 20 U/L (0-32); Blood Urea Nitrogen 23 mg/dL (8-23); Calcium 9.1 mg/dL (8.5-10.5); Carbon Dioxide 26 mmol/L (22-29); Chloride 101 mmol/L (98-107); Creatinine Clr Calc Pharmacy 41.6051; Globulin 2.3 g/dL (1.3-4.6); Glucose 97 mg/dL (65-115); Lipase 34 U/L (13-60); Osmolality Calculated 292 mOsm/kg (285-295); Potassium 4.2 mmol/L (3.5-5.1); Sodium 139 mmol/L (136-145); Total Bilirubin 0.6 mg/dL (0.15-1.2); Total Protein 6.5 g/dL (6.6-8.7)
[2025-02-20] MEDS: lidocaine 2% viscous 15 ML, aluminum-mag hydrox-simethicon 30 ML, sucralfate oral liq 1 GM PO (23:16)
[2025-02-20] MEDS: ondansetron 2 mg/ML SDV 2 mL 4 MG IVP (23:16)
[2025-02-20] MEDS: sodium chloride 0.9% 1,000 ML 999 ML IV (23:16)
[2025-02-20] MEDS: famotidine 20 mg/2 mL INJ IVP (23:16)
[2025-02-21] MEDS: levofloxacin-dextrose 5 % 750 MG/150 ML PREMIX 100 MG IV (00:13)
[2025-02-21 00:15] VITALS: BP 121/73; PULSE 91; RESP 16; O2SAT 93
[2025-02-21 01:06] LABS: Troponin 5 2HR 13.99 ng/L (0-10); Troponin 5 2HR Delta 0.99 ABS# (0-10)
[2025-02-21 01:15] VITALS: PULSE 93; O2SAT 89
[2025-02-21 02:05] VITALS: BP 112/59; PULSE 85; O2SAT 90
[2025-02-21 02:06] VITALS: BP 112/59; PULSE 85; O2SAT 90
== END 2025-02-21 02:08 | disposition home or self-care (01) ==
PROVIDERS: Emergency Provider Emergency Medicine; PCP Nurse Practitioner Family
DX: J18.9 Pneumonia, unspecified organism (principal); Z79.01 Long term (current) use of anticoagulants; F17.290 Nicotine dependence, other tobacco product, uncomplicated; I10 Essential (primary) hypertension
CPT/HCPCS: 36415; 71045; 80053; 83690; 84484; 85025; 93005; 96374; 96375; 99285; J1956; J2405; J3490; J7030; J9999

== ENCOUNTER → 2025-03-18 14:55 | Outpatient (BNVA) | payer MEDICARE, BC, SELFPAY | PROVIDERS: PCP Nurse Practitioner Family; Visit Provider Nurse Practitioner Family | DX: R42 Dizziness and giddiness (principal); I10 Essential (primary) hypertension | CPT/HCPCS: 80053; 84443; 85025 ==

== ENCOUNTER → 2025-05-20 11:30 | Outpatient (BNVA) | payer MEDICARE, BC, SELFPAY | PROVIDERS: PCP Nurse Practitioner Family; Visit Provider Nurse Practitioner Family | DX: I10 Essential (primary) hypertension (principal); K50.80 Crohn's disease of both small and large intestine without complications | CPT/HCPCS: 80053; 80061; 82306; 82607; 84443; 85025 ==

== ENCOUNTER → 2025-06-11 08:16 | Outpatient (BNVA) | payer MEDICARE, BC, SELFPAY | PROVIDERS: PCP Nurse Practitioner Family; Visit Provider Nurse Practitioner Family | DX: R79.89 Other specified abnormal findings of blood chemistry (principal) | CPT/HCPCS: 80048 ==

== ENCOUNTER → 2025-06-30 14:47 | Outpatient (BNVA) | payer MEDICARE, BC, SELFPAY | PROVIDERS: PCP Nurse Practitioner Family; Visit Provider Nurse Practitioner Family | DX: M54.9 Dorsalgia, unspecified (principal); M47.814 Spondylosis without myelopathy or radiculopathy, thoracic region; M41.9 Scoliosis, unspecified | CPT/HCPCS: 72072; 72100 ==

== ENCOUNTER 2025-07-02 09:29 | Outpatient (CLI) | payer MEDICARE, BC, SELFPAY ==
--- NOTE | 2025-07-02 09:20 | MM_ITS ---
WS: [id number] BILATERAL SCREENING DIGITAL TOMOSYNTHESIS MAMMOGRAM WITH CAD HISTORY: SCREENING COMPARISON: 12/04/2023, 08/30/2018 Bilateral CC and MLO views with tomosynthesis and synthetic mammography submitted. Computer aided detection analyzed. Breast composition: There are scattered areas of fibroglandular density. No suspicious masses, microcalcifications or architectural distortion. MM/MM scr BI tomosynthesis [id number] IMPRESSION: BI-RADS: 1 - Negative. FOLLOW UP: 1 Year Follow-up
== END 2025-07-02 09:30 | disposition home or self-care (01) ==
LOC: MOBLMAM 09:30
PROVIDERS: PCP Nurse Practitioner Family; Visit Provider Nurse Practitioner Family
DX: Z12.31 Encounter for screening mammogram for malignant neoplasm of breast (principal)
CPT/HCPCS: 77063; 77067

== ENCOUNTER → 2025-07-10 08:07 | Outpatient (BNVA) | payer MEDICARE, BC, SELFPAY | PROVIDERS: PCP Nurse Practitioner Family; Visit Provider Nurse Practitioner Family | DX: R79.89 Other specified abnormal findings of blood chemistry (principal) | CPT/HCPCS: 80048 ==

== ENCOUNTER 2025-08-08 10:16 | Outpatient (CLI) | payer MEDICARE, BC, SELFPAY | END 2025-08-08 10:17 | disposition home or self-care (01) | LOC: LAB 10:18 | PROVIDERS: PCP Nurse Practitioner Family; Visit Provider Internal Medicine Cardiovascular Disease | DX: I11.0 Hypertensive heart disease with heart failure (principal); I50.32 Chronic diastolic (congestive) heart failure; I48.91 Unspecified atrial fibrillation; E78.2 Mixed hyperlipidemia; R94.39 Abnormal result of other cardiovascular function study; R06.02 Shortness of breath; Z87.891 Personal history of nicotine dependence | CPT/HCPCS: 36415; 80048; 83880; 99214 ==

== ENCOUNTER 2025-08-11 06:58 | Outpatient (CLI) | payer MEDICARE, BC, SELFPAY ==
--- NOTE | 2025-08-11 07:30 | CT_ITS ---
WS: [id number] LDCT LUNG CANCER SCREENING HISTORY: Z87.891 - Personal history of nicotine dependence TECHNIQUE: Axial imaging performed from the apices to 1 cm below the costophrenic angles. Coronal and sagittal reformats are submitted with axial MIP series. All CT scans at [facility] use at least one of these dose optimization techniques: automated exposure control; mA and/or kV adjustment per patient size (includes targeted exams where dose is matched to clinical indication); or iterative reconstruction. DLP: 47.59 mGy.cm DIvol: Mean CTDIvol: 0.70 (mGy) COMPARISON: 08/09/2023 Diagnostic quality: Satisfactory Lungs: Pulmonary hyperexpansion with emphysema. Mild biapical pleural thickening and scarring. There are a few small subpleural nodules and tags. There are a few scattered micronodules. New areas of groundglass attenuation in the RIGHT middle and RIGHT lower lobes. There is mild tree-in-bud airspace disease. Heart: Mild cardiomegaly with no pericardial effusion.. Other findings: Extensive calcifications in the table mountain coronary arteries and thoracic aorta. Mild bulging of the thoracic aorta through the arch is stable. No adenopathy. Subcentimeter RIGHT thyroid nodule. No change cortical bulge posterior LEFT kidney. Splenic granulomata. Moderate RIGHT curvature thoracic spine. CT/CT lung screening [id number] IMPRESSION: LUNG-RADS: 2S-Benign Appearance or Behavior with Significant Findings FOLLOW UP: 12 Month: Continue annual screening with LDCT OTHER FINDINGS (S MODIFIER): New groundglass and tree-in-bud airspace disease i n the RIGHT middle and RIGHT lower lobes. Suspicious for infection or aspiratio n. As these findings are probably acute recommend follow-up and treatment at th is time with primary care physician. Not likely neoplastic.
== END 2025-08-11 06:59 | disposition home or self-care (01) ==
LOC: RAD 06:59
PROVIDERS: PCP Nurse Practitioner Family; Visit Provider Nurse Practitioner Family
DX: Z12.2 Encounter for screening for malignant neoplasm of respiratory organs (principal); Z87.891 Personal history of nicotine dependence; J98.4 Other disorders of lung; J43.9 Emphysema, unspecified; J94.9 Pleural condition, unspecified; R91.8 Other nonspecific abnormal finding of lung field; J84.89 Other specified interstitial pulmonary diseases; I51.7 Cardiomegaly; I70.0 Atherosclerosis of aorta; I25.84 Coronary atherosclerosis due to calcified coronary lesion; I71.22 Aneurysm of the aortic arch, without rupture; D73.9 Disease of spleen, unspecified; E04.1 Nontoxic single thyroid nodule; M41.34 Thoracogenic scoliosis, thoracic region
CPT/HCPCS: 71271

== ENCOUNTER → 2025-08-25 09:25 | Outpatient (BNVA) | payer MEDICARE, BC, SELFPAY | PROVIDERS: PCP Nurse Practitioner Family; Visit Provider Internal Medicine Cardiovascular Disease | DX: I50.32 Chronic diastolic (congestive) heart failure (principal); R79.89 Other specified abnormal findings of blood chemistry; I48.91 Unspecified atrial fibrillation; I35.0 Nonrheumatic aortic (valve) stenosis; I10 Essential (primary) hypertension | CPT/HCPCS: 80048; 83880 ==

== ENCOUNTER → 2025-09-29 10:50 | Outpatient (BNVA) | payer MEDICARE, BC, SELFPAY | PROVIDERS: PCP Nurse Practitioner Family; Visit Provider Internal Medicine Cardiovascular Disease | DX: R06.00 Dyspnea, unspecified (principal); I48.91 Unspecified atrial fibrillation; I10 Essential (primary) hypertension | CPT/HCPCS: 80048; 83880 ==